=== PATIENT | male | born 1945 | race Hispanic/Latino ===

== ENCOUNTER 2017-04-04 17:10 | Inpatient (IN) | payer OTHER ==
[2017-04-04 19:01] LABS: #Eosinphils 0.3 thou/uL (0.0-0.7); #Lymphocytes 1.5 thou/uL (1.20-3.40); #Monocytes 0.8 thou/uL (0.11-0.59); #Neutrophils 5.7 thou/uL (1.40-6.50); %Basophils 0.4 % (0.0-1.0); %Eosinophils 3.1 % (0.0-10.0); %Lymphocytes 17.7 % (21.0-51.0); %Monocytes 9.4 % (0.0-10.0); Hematocrit 37.3 % (42.0-52.0); Mean Platelet Volume 8.3 fL (7.4-10.4); Red Blood Cell (RBC) Count 4.17 mill/uL (4.70-6.10); White Blood Cell (WBC) Count 8.2 thou/uL (4.8-10.8)
[2017-04-04 19:20] LABS: ALT (SGPT) 8 U/L (8-55); AST (SGOT) 9 U/L (5-34); Alkaline Phosphatase 85 U/L (40-150); Anion Gap 18 mmol/L (10-20); BUN (Urea Nitrogen) 54 mg/dL (8.4-25.7); Bilirubin, Total 0.7 mg/dL (0.2-1.2); Calc. Creatinine Clearance 0 mL/min (70-130); Calcium 10.1 mg/dL (7.8-10.44); Carbon Dioxide 29 mmol/L (23-31); Chloride 100 mmol/L (98-107); Estimated GFR-MDRD 5; Globulin 3.8 g/dL (2.4-3.5); Protein, Total 7.6 g/dL (5.8-8.1)
[2017-04-04] MEDS ORDERED: Metoprolol Tartrate 25 MG TAB ONE (20:40)
[2017-04-05] MEDS: Metoprolol Tartrate 25 MG TAB PO SCH ×2 (07:37→20:32)
[2017-04-05] MEDS: Sevelamer Carbonate 800 MG TAB PO SCH (08:30)
[2017-04-05] MEDS: Clopidogrel Bisulfate 75 MG TAB PO SCH (08:30)
[2017-04-05] MEDS: Fish Oil 1,000 MG CAP PO SCH (08:31)
[2017-04-05] MEDS ORDERED: Ondansetron HCl/PF 4 MG/2 ML Vial IVP PRN (09:05)
[2017-04-05] MEDS ORDERED: Ondansetron ODT 8 MG TAB SL PRN (09:05)
[2017-04-05] MEDS ORDERED: Heparin 1,000 UNITS/ML VIAL FS SCH (11:00)
[2017-04-05] MEDS ORDERED: Lidocaine 2% w/Epinephrine 1:200K 20 ML VIAL FS SCH (11:00)
[2017-04-05] MEDS ORDERED: Heparin 10,000 UNITS/ 10 ML VIAL FS SCH (12:00)
--- NOTE | 2017-04-05 13:26 | OP ---
PREOPERATIVE DIAGNOSES: Acute on chronic renal insufficiency, clotted arteriovenous loop, arterioven ous graft. POSTOPERATIVE DIAGNOSES: Acute on chronic renal insufficiency, clotted arteriovenous loop, arteriove nous graft. PROCEDURE: Left femoral temporary dialysis catheter. SURGEON: Wilbert Rhodes M.D. ANESTHESIA: Local. ESTIMATED BLOOD LOSS: Minimal. COMPLICATIONS: None. TECHNIQUE: The right groin was shaved, prepped and draped in a sterile fashion. Local anesthetic in filtrated over the left femoral vein. Femoral vein is cannulated using a 22-gauge finder needle foll owed by a Seldinger needle and a wire was passed under no tension. A small zac was made at the wire entrance site. The wire is used as a guide to dilate the femoral vein. The dialysis catheter was t hreaded to its fullest extent. The wire is withdrawn. All ports flushed and alise blood without diff iculty. Each was flushed with a saline solution. The two dialysis ports are left with 1.8 mL of 100 0 units of heparin per mL solution. Sterile dressings are placed. The enclosed suture was used to s uture the dialysis catheter to the skin. The patient was en route to recovery in stable condition. All instrument counts, needle counts, and lap counts were correct.
--- NOTE | 2017-04-05 14:15 | CON ---
DATE OF CONSULTATION: 04/05/2017 HISTORY: Mr. Jorge is a 71-year-old male who was admitted for a clotted AV fistula/graft access. He could not be declotted as an outpatient due to insurance issues. For this reason, solomon rasmussen was admitted to have his AV graft/fistula declotted. Unfortunately, no interventional radiologist is available this weekend. We will be consulting the surgeon, Dr. Rhodes for temporary femoral charlie lysis catheter, so we can dialyze him. This patient has not had dialysis since Friday. The plan is to wait for Friday for the interventional radiologist to come, so they can do an AV fistulogram. For the moment, we will dialyze this patient once we have the access available. REVIEW OF SYSTEMS: Positive for mild shortness of breath. No nausea, no vomiting, no diarrhea, no c onstipation, no syncopal episode, no abdominal pain. Appetite and energy level is fair. No headache , no diplopia, no sore throat, no diarrhea, no fever or chills, no abdominal pain, no gross hematuria , no dysuria, no frequency. MEDICATIONS: Clopidogrel 75 mg once a day, diltiazem CD 180 mg once a day, fish oil 1000 mg daily, m etoprolol tartrate 25 mg p.o. b.i.d., p.r.n. Zofran, Protonix 40 mg daily, Renvela 800 mg daily, and simvastatin 10 mg tab at bedtime. PAST MEDICAL HISTORY: 1. Hypertension. 2. History of noncompliance. 3. Hyperlipidemia, ESRD from presumed chronic AFIB. 4. Nonischemic cardiomyopathy status post mesenteric ischemia. 5. Peripheral vascular disease. PAST SURGICAL HISTORY: 1. Status post pacemaker placement. 2. Status post cardiac ablation therapy. 3. Status post exploratory lap for lysis of adhesions. 4. Status post incisional hernia repair with mesh. 5. Status post right fem pop. 6. Status post cuffed dialysis catheter placement. 7. Status post AV fistula placement. 8. Status post appendectomy. ALLERGIES: None. TRAUMA: None. IMMUNIZATIONS: Up to date. HOSPITALIZATIONS: Please see past medical history. SOCIAL HISTORY: The patient is and lives in [place], several children. Currently not w orking. No history of smoking, no alcohol intake, no IV drug abuse. Status post blood transfusion. FAMILY HISTORY: No family history of ESRD. PHYSICAL EXAMINATION: VITAL SIGNS: Blood pressure is 160/79, heart rate 79, respiratory rate 20, temperature 98.6, pulse o x 98%. GENERAL: Noted to be awake, alert, comfortable, not in distress. SKIN: Adequate turgor. HEENT: Pinkish conjunctivae, anicteric sclerae. NECK: No neck mass, no carotid bruits, no JVD. CHEST: No deformities. LUNGS: Clear breath sounds, no wheezing, no crackles. HEART: Normal sinus rhythm. No murmur, no gallops, no rubs. ABDOMEN: Globular, soft, nontender, no masses. EXTREMITIES: No edema. AV graft/fistula is nonfunctional. NEUROLOGIC: Awake and oriented to 3 spheres. Moving all extremities. No tremors. LABORATORY DATA: Laboratories of 04/04/2017; white count 8.2, hemoglobin 11.8, sodium 143, potassium 4.1, chloride 100, carbon dioxide 29, BUN 54, creatinine 11.09, glucose 113, calcium 10.1, and album in 3.8. ASSESSMENT AND PLAN: 1. End-stage renal disease - nonfunctional dialysis access. Unable to open the access this weekend. We will be consulting Surgery for temporary femoral dialysis catheter and then we will initiate charlie lysis. My plan is to do a 4-hour hemodialysis with fluid removal as tolerated by the patient. 2. Hypertension. Continue current blood pressure medications. Case discussed at length with samantha boogie's daughter and with the patient by a production coordinator. Agree with current management.
--- NOTE | 2017-04-05 14:36 | HP ---
DATE OF ADMISSION: 04/04/2017 CHIEF COMPLAINT: Hemodialysis access catheter failure. HISTORY OF PRESENT ILLNESS: This is a 71-year-old Indonesian speaking male of Dr. Justin Doe who has type 2 diabetes, associated end-stage renal failure. Also sees Dr. Alicea. He has been on hemodialysis for about 6 years. Three weeks ago, he had an outpatient declotting procedure perfor med on his right arm access and his dialysis schedule is Friday, Friday and Friday. He had his [facility] dialysis on Friday; 2 days later on Friday, they could not get access which is why he was sent to the hospital, yesterday was Friday. He is being admitted for access for his dialysis. Dr. Alicea rubalcava s seen him and wanted to not wait until Friday to get his next dialysis, so the plan is to be held in the hospital, he gets temporary access and then to convert it over to more permanent version. PAST MEDICAL HISTORY: Positive for type 2 diabetes with diabetes associated end-stage renal disease, has history of hemodialysis Friday, Friday, Friday, sees Dr. Alicea. PAST SURGICAL HISTORY: Appendectomy in 2006 and abscess I&D in 2007, incisional herniorrhaphies in and 2009 and his hemodialysis fistula was placed in 02/[address] Dailey, he had a cardiac freedom terization done and had a right lower extremity angioplasty done in 2013. ALLERGIES: He has no known drug allergies. CURRENT MEDICATIONS: He takes Plavix 75 mg a day, metoprolol 100 mg twice a day, Cartia XT 240 once a day, Renvela 800 mg 2 tabs with each meal, Prilosec 20 mg a day and Zocor 10 mg a day, also takes T ums. FAMILY HISTORY: Positive for diabetes in both parents, had an unknown type of cancer in his maternal grandmother. No other chronic diseases in the family. SOCIAL HISTORY: He is , has children and no longer working. He smokes 1 pack a day and has f or over 54 years. REVIEW OF SYSTEMS: Denies any headache or changes in vision, no fevers or chills. Denies any chest pain, shortness of breath, hemoptysis or hematemesis. Denies any GI or symptoms. No changes to G I and habits. Denies any seizures, paresis or paresthesias. No hallucinations, auditory or visua l. Denies any suicidal or homicidal ideations. PHYSICAL EXAMINATION: GENERAL: He is resting comfortably in bed. His is in the room with him and the daughter was on the phone. VITAL SIGNS: Temperature 98.6, pulse 79, respirations 20, satting 98% on room air with 160/79 blood pressure. HEENT: Normocephalic, atraumatic cranium with pupils are equal, round, reactive to light and accommo dation. Extraocular movements are intact. Sclerae is anicteric. Mucous membranes are moist. NECK: Supple, no JVD, no bruits, no thyromegaly. LUNGS: Clear to auscultation bilaterally. HEART: S1, S2, with no rubs, murmurs, or gallops. ABDOMEN: Soft, nontender, nondistended. He is obese. GENITOURINARY: Deferred. EXTREMITIES: Show good palpable pulses in all four extremities. No cyanosis, clubbing or edema. Ry ancelmo upper extremity calf site for hemodialysis. Has no thrill on palpation. NEUROLOGIC: Grossly intact. Cranial nerves II-XII are equal and symmetrical. No motor or sensory d eficits noted. LABORATORY DATA: White count is 8.2, H&H is 11.8 and 37.3 respectively with 120,000 platelets. Neut rophils are 69% and lymphocytes of 17. Chemistries show sodium 143, potassium 4.1, chloride 100, bic arbonate 29, BUN is 54, creatinine is 11.09 with a GFR of 5, glucose at 116. ASSESSMENT: Type 2 diabetes with end-stage renal failure, on hemodialysis, with a failed hemodialysi s access catheterization, planning getting a temporary catheter today and then will convert to that o n Friday when Dr. Dailey, Dr. Olvera, Dr. Rhodes has seen him as well as Dr. Alicea.
[2017-04-05] MEDS: Simvastatin 5 MG TAB PO SCH (20:32)
[2017-04-06] MEDS: Fish Oil 1,000 MG CAP PO SCH (09:12)
[2017-04-06] MEDS: Metoprolol Tartrate 25 MG TAB PO SCH ×2 (09:12→20:47)
[2017-04-06] MEDS: Clopidogrel Bisulfate 75 MG TAB PO SCH (09:13)
--- NOTE | 2017-04-06 09:45 | PRG ---
DATE OF SERVICE: 04/06/2017 RENAL MEDICINE SUBJECTIVE: Mr. Jorge was admitted due to a clotted AV graft/fistula. He had a temporary femoral dialysis catheter placed. He underwent hemodialysis yesterday without any difficulty. This morning , he voices no new complaints. Denies any chest pain or shortness of breath. PHYSICAL EXAMINATION: VITAL SIGNS: Blood pressure 142/75, heart rate 80, respiratory rate 16, temperature 98.8, and pulse ox 98%. GENERAL: Noted to be awake, supine, comfortable, not in distress. SKIN: Adequate turgor. HEENT: He has pinkish conjunctivae, anicteric sclerae. NECK: No neck mass, no carotid bruits. No JVD. CHEST: No deformities. LUNGS: Clear breath sounds. No wheezing, no crackles. HEART: Normal sinus rhythm. No murmur, no gallops, no rubs. ABDOMEN: Globular, soft, nontender, no masses. EXTREMITIES: No edema, no deformities. MEDICATIONS: Medications of 04/06/2017 reviewed. LABORATORY DATA: Laboratories of 04/06/2017 not done. On 04/04/2017, hemoglobin 11.8 and potassium is 4.1. ASSESSMENT AND PLAN: 1. Clotted arteriovenous fistula/graft - arteriovenous fistulogram in a.m. with Interventional Radio logy. Currently, the patient has a temporary femoral dialysis catheter. 2. End-stage renal disease, stable. We will continue current Friday, Friday, and Friday hemodial ysis with this patient as tolerated. He did receive dialysis yesterday. We will recheck basic metab olic panel and CBC in a.m. Overall, agree with current management.
[2017-04-06] MEDS: Sevelamer Carbonate 800 MG TAB PO SCH (10:03)
[2017-04-06] MEDS ORDERED: HumaLOG 300 UNITS/3 ML VIAL SC PRN ×2 (13:29)
[2017-04-06] MEDS ORDERED: Heparin 10,000 UNITS/1 ML VIAL ONE (17:36)
[2017-04-06] MEDS: Simvastatin 5 MG TAB PO SCH (20:47)
[2017-04-07 05:28] LABS: #Eosinphils 0.1 thou/uL (0.0-0.7); #Lymphocytes 1.2 thou/uL (1.20-3.40); #Monocytes 0.7 thou/uL (0.11-0.59); #Neutrophils 4.4 thou/uL (1.40-6.50); %Basophils 0.2 % (0.0-1.0); %Eosinophils 2.1 % (0.0-10.0); %Lymphocytes 18.7 % (21.0-51.0); Hematocrit 35.5 % (42.0-52.0); Mean Platelet Volume 8.5 fL (7.4-10.4); Red Blood Cell (RBC) Count 3.99 mill/uL (4.70-6.10); White Blood Cell (WBC) Count 6.5 thou/uL (4.8-10.8)
[2017-04-07 05:41] LABS: Anion Gap 18 mmol/L (10-20); BUN (Urea Nitrogen) 44 mg/dL (8.4-25.7); Calc. Creatinine Clearance 9 mL/min (70-130); Calcium 8.1 mg/dL (7.8-10.44); Carbon Dioxide 24 mmol/L (23-31); Chloride 100 mmol/L (98-107); Estimated GFR-MDRD 6
--- NOTE | 2017-04-07 08:18 | PRG ---
DATE OF SERVICE: 04/07/2017 SUBJECTIVE: This is a 71-year-old Latin-Jordanian male with clotted arteriovenous fistula. The patie nt was admitted for continuation of dialysis and surgical evaluation of his arteriovenous access. A temporary femoral catheter was placed. OBJECTIVE: VITAL SIGNS: Temperature 98.1, pulse 77, respirations 20, pulse ox 96, blood pressure 147/84. HEART: Regular rate and rhythm. LUNGS: Clear. ABDOMEN: Soft, nontender. LABORATORY DATA: White count 6.5, H and H 11 and 35. Sodium 138, potassium 4.2, creatinine 9.2, BUN 44. ASSESSMENT: 1. Clotted arteriovenous fistula/graft. 2. End-stage renal disease secondary to diabetes. 3. Hypertension. 4. Hyperlipidemia. 5. Diabetes. PLAN: 1. Dr. Dailey to evaluate today for AV access for hemodialysis. 2. AV fistulogram is scheduled for this morning by Interventional Radiology. 3. The patient remains asymptomatic without any complaints of chest pain, shortness of breath, nause a, or vomiting.
[2017-04-07] MEDS ORDERED: Activase 2 MG VIAL CATH SCH (08:30)
[2017-04-07] MEDS ORDERED: Heparin 10,000 UNITS/ 10 ML VIAL ONE (09:00)
--- NOTE | 2017-04-07 09:19 | PRG ---
DATE OF SERVICE: 04/07/2017 RENAL MEDICINE SUBJECTIVE: Luisito is a 71-year-old male who was admitted due to a clotted AV graft/AV fi stula. A temporary femoral dialysis catheter has been inserted by Dr. Rhodes. He is due for AV fis tulogram today. He is currently at the bedside supervising his dialysis. He voices no new complaint s. He denies any chest pain or shortness of breath. PHYSICAL EXAMINATION: VITAL SIGNS: Blood pressure is 147/84, heart rate 77, respiratory rate 20, temperature 98.1, pulse o x 96%. GENERAL: Noted to be awake, supine, comfortable, not in distress. SKIN: Adequate turgor. HEENT: He has pinkish conjunctivae, anicteric sclerae. NECK: No neck mass, no carotid bruits, no JVD. CHEST: No deformities. LUNGS: Clear breath sounds. No wheezing, no crackles. HEART: Normal sinus rhythm. No murmur, no gallops, no rubs. ABDOMEN: Globular, soft, nontender, no masses. EXTREMITIES: No edema. MEDICATIONS: Of 04/07/2017 reviewed. LABORATORY DATA: Of 04/07/2017, sodium 138, potassium 4.2, chloride 100, carbon dioxide 24, BUN 44, creatinine 9.22, glucose 107, calcium 8.1. White count 6.5, hemoglobin 11.4. ASSESSMENT AND PLAN: 1. End-stage renal disease, stable. Tolerating current hemodialysis regimen. We will plan to do a 4-hour dialysis with fluid removal as tolerated. 2. Clotted arteriovenous graft/fistula - for arteriovenous fistulogram. He has a temporary dialysis catheter. Overall, agree with current management.
[2017-04-07] MEDS: Metoprolol Tartrate 25 MG TAB PO SCH ×2 (13:04→20:39)
[2017-04-07] MEDS: Clopidogrel Bisulfate 75 MG TAB PO SCH (13:04)
[2017-04-07] MEDS: Fish Oil 1,000 MG CAP PO SCH (13:10)
[2017-04-07] MEDS: Sevelamer Carbonate 800 MG TAB PO SCH (13:10)
--- NOTE | 2017-04-07 18:48 | HP ---
HISTORY OF PRESENT ILLNESS: Terence Jorge is a 71-year-old male patient who was previously dialyz ed at [facility] until insurance demanded he be changed to [facility], [address] [place] [address], and is followed by Dr. Sundeep Alicea and I have been following Mr. Luisito espinoza r some time. He has a right arm fistula that I placed on 03/2011, perforating branch of antecubital vein, inflow proximal radial artery, outflow basilic and cephalic veins, 4 mm coronary dilator interr ogation. He had multiple dialysis catheters placed. The patient has a pacemaker in left subclavian vein. Dr. Nichols performed 06/2011 above the knee right fem-pop bypass graft with [place] 8 mm zeke t. The patient has had problems with dialysis access. I saw him in 2015 for an edematous right arm and he had undergone a fistulogram with Dr. Zavala on several occasions with angioplasty of his n ative vein fistula, axillary area and subclavian vein. Considering the progressive nature of this an d is edematous right arm, it was felt that he would have a failing fistula right arm and the decision was made to evaluate his left arm with a contrast venogram to evaluate the central circulation consi dering he had a left subclavian vein pacemaker. This contrast venogram revealed mild stenosis near t he pacemaker lead, but there was no occlusion. Patient did not follow up with me after that study. Plans were to consider placement of a left arm fistula considering his right arm fistula is failing. Two weeks ago, his fistula thrombosed or was having problems and he was referred by [facility] [place] to [place] to Dr. Natanael Freeman. Patient's family stated that they wanted him to sta y here, but the dialysis center insisted that he be transferred to [place]. Patient had a procedure t here performed, they are uncertain as to the nature and I have called Dr. Natanael Freeman in [place] an d am awaiting his call. Patient was dialyzed last Friday, 5 days ago, and his fistula seemed to b e working well approximately for 2 weeks post-intervention by Dr. Natanael Freeman in [place]. When he reported a Friday four days ago, his fistula had thrombosed. He was scheduled for fistulogram today, but considering the recurrent nature of this and the central circulation problems, we have canceled that. I am still waiting the call from Dr. Freeman. Patient's right arm edema has resolved after his fistula thrombosed. Patient has had multiple abdominal operations for complicated hernia. Laparosc opic repair complicated by leak and resultant multiple open operations, component separations, to gai n closure and he is probably not a good candidate for peritoneal dialysis. He does ambulate with the ability of a cane. He does have palpable pedal pulses with chronic venous stasis changes and he sandoval ht be a candidate for a thigh graft in the future. Consideration at this point would be to establish a left arm fistula. On admission in the emergency room, patient had a left antecubital IV placed, present since until I s aw him today and removed it at the bedside. The patient had a repeat Marking ultrasound 01/11/2016 t o consider a left arm fistula, the left cephalic vein was 0.8 mm, 0.6 mm, 0.7 mm and 0.8 mm antecubit al fossa, 0.6 mm in proximal forearm. Left basilic vein was 3.9 mm, 3 mm, 4 mm and 1.9 mm antecubita l fossa and 2 mm in proximal forearm. Patient is likely to need a prosthetic graft, although explora tion could be undertaken to check availability of hamilton vein fistula. The patient has had a tempora ry left femoral vein dialysis catheter placed and is using that for dialysis. He dialyzed this morni ng. This is the first time he dialyzes since Friday last week. (Today is Friday). ALLERGIES: None. TOBACCO: None. ALCOHOL: None. HOME MEDICATIONS: Plavix 75 mg a day, Renvela 800 mg a day, omega 3 fatty acids daily, Prilosec 20 m g daily, metoprolol 25 mg b.i.d., Zocor 10 mg at bedtime. PAST SURGICAL HISTORY: Extensive. On 07/2006, electrical cardioversion for atrial flutter, Dr. Brady Betancourt. On 11/2006, acute appendicitis with abscess with diminished cardiac ejection fraction of 20%. Right lower quadrant incision at [facility]'s point to a midline exploratory laparotomy, append ectomy, drainage of abscess. 06/2007, laparoscopic adhesiolysis, laparoscopic polyester auto-suture 8 x 10-inch mesh repair of incisional hernia. The patient postoperatively suffered a leak and had be en cared for at another facility. He had an operation there for washout and closure of midline defec t. On 02/10/2008, recurrent incisional hernia, laparoscopic adhesiolysis, performed the hernia repai r, performed adhesiolysis for more than 1 hour, laparoscopic Proceed mesh, repair of incisional herni a with 20 x 25 cm Proceed mesh. 09/01/2009, incisional hernia repair complex with preperitoneal Proc eed mesh 20 x 25 cm utilizing component separation technique, lysis of adhesions for more than an estefani r, complicated wound left open to healing by secondary intention debridement and wound VAC applicatio n. On 09/29/2010, placement of right IJ cuffed tunnel dialysis catheter. On 02/13/2011, right arm p rimary fistula, perforating branch antecubital vein to proximal radial artery outflow basilic and cep halic vein. On 06/18/2011, right fem-pop bypass graft, Dr. Lawrence Nichols above the knee, PTFE. 08/04, bedside debridement of necrotic Achilles tendon due to a pressure sore. On 08/08/2011, left I J dual-lumen Thomson catheter for long-term IV antibiotic administration. 04/11/2014, Dr. Betancourt, cent ral line placement. On 04/11/2014, right femoral vein temporary dialysis catheter, after cardiac arr est pacemaker dependent respiratory failure, ventilator, thrombosed right arm fistula and need of liss rgent dialysis access. On 07/06/2015, Dr. Lees, cystoscopy for ureteral stone and fever. On 06/2016, Dr. Rhodes, left femoral vein temporary dialysis catheter. PAST MEDICAL HISTORY: 1. End-stage renal disease, on maintenance dialysis using right arm fistula, malfunction of right ar m dialysis fistula. 2. Type 2 diabetes mellitus. 3. Ambulatory with assistance of a walker or cane due to weakness. REVIEW OF SYSTEMS: Noncontributory. PHYSICAL EXAMINATION: VITAL SIGNS: Five foot, 484 pounds, 36 BMI, 99 degrees, 82, 18, 133/70. HEENT: Unremarkable. LUNGS: Clear to auscultation. CARDIAC: Regular rate and rhythm without murmur or gallop. ABDOMEN: Soft, nontender. Scars per above surgical history. EXTREMITIES: Palpable femoral, popliteal, posterior tibial and dorsalis pedis pulses. No ankle purvi a. Right arm dialysis fistula thrombosed, right arm edema resolved, left subclavian vein pacemaker. ASSESSMENT AND PLAN: 1. 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 George giraldo has had intervention three weeks ago in [place], referred by [facility] against family w joni. He had a procedure performed there and his right arm fistula worked for two weeks, then throm bosed again. Fistulogram has been ordered, but I canceled this as I do not think right arm fistula i s salvageable. We would recommend that we place a dialysis catheter tomorrow and then later this wee k, consider left arm fistula, more likely a dialysis graft or staged transposition pending operative findings. He is at risk for having to have a thigh dialysis graft in the future. He has a right sub clavian vein obstruction. 2. Hypertension. 3. Peripheral artery disease. 4. History right femoral-popliteal above knee bypass graft by Dr. Nichols. ADDENDUM: Since the dictation earlier today, I have spoken with Dr. Natanael Freeman who performed on 03/06/2017, procedure/graft from the left internal jugular vein to the right deltopectoral area in order to try to salvage the patient's right arm fistula. The patient arm edema resolved after this and his fistul a worked until it thrombosed last week. Considering this information, we will plan attempt at idaag e of his fistula tomorrow with thrombectomy of his right arm fistula, possible placement of thigh charlie lysis catheter.
--- NOTE | 2017-04-07 19:10 | PRG ---
DATE OF SERVICE: 04/07/2017 Mr. Jorge has a right arm fistula with occluded right subclavian vein. He went to [place] on 03/[address] Natanael Freeman performed HeRO procedure converting his right arm cephalic vein fistula outflow to a PTFE graft anastomosed to the deltopectoral groove right arm outflow to the left interna l jugular vein (right internal jugular vein outflow occluded). This functioned for dialysis for two and a half weeks. At this point, this access is very difficult. I have spoke to Dr. Natanael Freeman. I spoke to the patient, but there is some language barrier and I would like to discuss this again w ith the family in the morning. I would recommend that he undergo a fistulogram and attempted thrombo lysis. His clot burden may be too great and he may need surgery to assess. If radiology can open hi s arterial inflow and venous outflow, operative intervention may not be necessary, but would plan to have that resource available after Interventional Radiology in case is needed. The patient has PAD w ith a history of right femoral popliteal artery bypass, PTFE graft above the knee. He does have palp able pulses left. His abdomen is hostile with multiple prior operations and probably not amenable pe ritoneal dialysis. Left arm possibly could have a dialysis fistula, although veins are suboptimal an d left subclavian vein was stenotic two years ago. We will await outcome with tomorrow's interventio nal, possible surgery or procedure.
[2017-04-07] MEDS: Simvastatin 5 MG TAB PO SCH (20:39)
[2017-04-08 05:57] LABS: Anion Gap 17 mmol/L (10-20); BUN (Urea Nitrogen) 32 mg/dL (8.4-25.7); Calc. Creatinine Clearance 12 mL/min (70-130); Carbon Dioxide 24 mmol/L (23-31); Chloride 99 mmol/L (98-107); Estimated GFR-MDRD 8
[2017-04-08] MEDS ORDERED: Heparin 1,000 UNITS/ML VIAL ONE (07:38)
[2017-04-08] MEDS ORDERED: Sterile Water 10 ML VIAL IVP SCH (07:45)
[2017-04-08] MEDS ORDERED: Activase 2 MG VIAL CATH SCH (07:45)
[2017-04-08] MEDS: Metoprolol Tartrate 25 MG TAB PO SCH ×2 (08:00→21:18)
--- NOTE | 2017-04-08 08:56 | PRG ---
DATE OF SERVICE: 04/08/2017 SUBJECTIVE: The patient is doing well this morning, talked with the daughter. The patient is being prepared to undergo a procedure by Dr. Dailey. Attempt will be made with his present fistula to [facility] use Activase to open up the clot versus angioplasty versus stent placement versus thrombectomy. OBJECTIVE: VITAL SIGNS: Temperature 99.3, pulse 80, respirations 17, pulse ox 94, blood pressure 118/72. Exam unchanged. LABORATORY DATA: Electrolytes: Sodium 136, potassium 3.8, creatinine 6.8, BUN 32, blood sugar 109, 110, 107. ASSESSMENT: 1. Clotted AV fistula/graft. 2. End-stage renal disease secondary to diabetes. 3. Hypertension. 4. Hyperlipidemia. 5. Diabetes. PLAN: 1. Dr. Dailey to attempt opening of the patient's fistula. 2. Continue dialysis. 3. The patient remains complicated with his multiple fistula placements as well as his multiple abdo rommel surgeries, possibly precluding him from peritoneal dialysis.
[2017-04-08] MEDS: Sevelamer Carbonate 800 MG TAB PO SCH (09:33)
[2017-04-08] MEDS: Fish Oil 1,000 MG CAP PO SCH (09:33)
[2017-04-08] MEDS: Clopidogrel Bisulfate 75 MG TAB PO SCH (09:34)
--- NOTE | 2017-04-08 09:39 | SPC ---
RIGHT UPPER EXTREMITY FISTULOGRAM: Date: 04-08-17 Radiation dosimetry: 4.6 minutes fluoroscopy; DAP 13.5 mGy*cm^2. Technique: Informed consent was obtained from the patient. The right upper extremity fistula was accessed using a short 6 Irish sheath. Fistulogram was performed. The entire right upper extremity dialysis fistula is clotted. There is extensive intraluminal heterogeneity and thickening and fibrotic changes. Attem pts were made to gain access into the right upper extremity draining vein. HeRO type catheter. Attemp ts were unsuccessful in access to this. IMPRESSION: Clotted right upper extremity dialysis fistula. Attempts to gain access into the venous catheter were unsuccessful. POS: ILANA
[2017-04-08] MEDS ORDERED: CEFAZOLIN/Water 2 GM/20 ML SYRINGE SLOW IVP SCH ×2 (13:45→18:00)
[2017-04-08] MEDS ORDERED: Iopamidol 300 61% 100 ML VIAL FS ONE (14:11)
--- NOTE | 2017-04-08 20:55 | PRG ---
DATE OF SERVICE: 04/08/2017 SUBJECTIVE: Terence Jorge underwent attempted interventional radiology today to declot his right arm cephalic vein fistula that he has had since 03/2011. The patient has previously noted to have de veloped right subclavian vein obstruction. The patient has been maintained by collaterals, although he had right arm edema until presenting, referred to [facility], seen Dr. Natanael Freeman, undergoing a He RO procedure. This involved prosthetic graft from the cephalic vein, deltopectoral groove right acro ss his chest to reach a patent left internal jugular vein with the prosthetic graft extending down th e internal jugular vein and superior vena cava. This was patent for 2 weeks and then thrombosed. Ra diology attempted to declot this today, but was unsuccessful. I do not think efforts to salvages are warranted. If the family wants to take the patient to Dr. Calvo or to see Dr. Natanael Freeman, he c an work with this in an attempt to do so. Currently, the patient has a right femoral vein temporary dialysis catheter. The patient has a mild narrowing of his left subclavian vein appreciated in 2016 contrast venogram. This is due to a pacemaker left. Now that the patient has left subclavian vein p acemaker and in addition the prosthetic graft from the internal jugular vein left to the innominate v ein to the superior vena cava. I do not think it is worthwhile to attempt dialysis access in his lef t arm as he would likely develop edema of his left arm. The patient has had a prior [id number] p rosthetic femoral to popliteal artery bypass graft, right leg, performed by Dr. Nichols in the past. He does have palpable pulses on the left femoral, popliteal, dorsalis pedis pulse. My recommendation at this time would be to place a cuffed tunneled dialysis catheter in right groin. This will allow him dialysis access, he can be discharged home. Then would return to the operating room as an outpat ient in the future to place a left thigh dialysis graft. 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
[2017-04-08] MEDS: Simvastatin 5 MG TAB PO SCH (21:17)
[2017-04-09] MEDS ORDERED: Heparin 10,000 UNITS/ 10 ML VIAL ONE (07:18)
--- NOTE | 2017-04-09 08:47 | PRG ---
DATE OF SERVICE: 04/09/2017 SUBJECTIVE: No complaints by patient. He is doing well. Yesterday the attempt at opening up the AV fistula was unsuccessful. Further plan pending. OBJECTIVE: VITAL SIGNS: Temperature 97.5, pulse 87, respirations 18, pulse ox 100, blood pressure 132/72. HEART: Regular rate and rhythm. LUNGS: Clear. ABDOMEN: Soft. LABORATORY: None. Last blood sugar 152, 141, 115. ASSESSMENT: 1. Postop day #1, status post unsuccessful declotting of thrombosed fistula. 2. End-stage renal disease secondary to diabetes. 3. Hypertension. 4. Hyperlipidemia. 5. Diabetes. PLAN: 1. Dr. Dailey to consider next step. Possibly placing a tunnel catheter of left groin area. 2. Continue dialysis. 3. Discharge per Dr. Dailey and Dr. Alicea.
--- NOTE | 2017-04-09 09:00 | PRG ---
DATE OF SERVICE: 04/09/2017 SUBJECTIVE: Mr. Jorge is a 71-year-old male with ESRD and was admitted for a clotted rig ht upper extremity AV fistula. Attempt to declot it was not successful. He had also announce that t he procedure done by Dr. Freeman in [place] undergone a HeRO procedure. However, this did not maintain the patency of the said graft. He is now being evaluated by Dr. Dailey. Per recommendation by Dr. Dailey is to place a cuffed dialysis catheter on the groin and then eventually consider an AV graft/ fistula on the left groin. He is undergoing dialysis. I am at the bedside supervising his dialysis. He is tolerating the said treatment. OBJECTIVE: VITAL SIGNS: Blood pressure is 132/72, heart rate 87, respiratory rate 18, temperature 97.5, pulse o x 100%. GENERAL: Noted to be awake, alert, supine, comfortable, not in distress. SKIN: Adequate turgor. HEENT: Pinkish conjunctivae, anicteric sclerae. NECK: No neck mass, no carotid bruits, no JVD. CHEST: No deformities. LUNGS: Clear breath sounds. No wheezing, no crackles. HEART: Normal sinus rhythm. No murmur, no gallops or rubs. ABDOMEN: Globular, soft, nontender. No masses. EXTREMITIES: No edema. MEDICATIONS: Of 04/09/2017 was reviewed. LABORATORY DATA: Of 04/07/2017, white count 6.5, hemoglobin 11.4. On 04/08/2017, BUN 32, creatinine 6.84, potassium 3.8. On 04/09/2017, glucose 115. ASSESSMENT AND PLAN: 1. Clotted AV fistula - for placement of right femoral cuffed dialysis catheter by surgery. Eventua l placement of AV fistula/graft on the groin. 2. End-stage renal disease, stable. Tolerating said treatment. Continue current Friday, Friday, Friday dialysis regimen. Fluid removal only as tolerated. We will do a base met and CBC in a.m. ADDENDUM: Dr. Dailey to place a cuffed dialysis catheter on the groin today.
[2017-04-09 12:02] VITALS: BMI 31.0
[2017-04-09] MEDS: Clopidogrel Bisulfate 75 MG TAB PO SCH (12:18)
[2017-04-09] MEDS: Metoprolol Tartrate 25 MG TAB PO SCH ×2 (12:18→21:05)
[2017-04-09] MEDS: Fish Oil 1,000 MG CAP PO SCH (12:19)
[2017-04-09] MEDS: Sevelamer Carbonate 800 MG TAB PO SCH (12:19)
[2017-04-09] MEDS ORDERED: Protamine Sulfate 50 MG/5 ML VIAL ONE (15:27)
[2017-04-09] MEDS ORDERED: Bupivacaine/Epinephrine 0.25% 30 ML VIAL ONE (15:27)
[2017-04-09] MEDS ORDERED: Heparin 10,000 UNITS/1 ML VIAL ONE (15:27)
[2017-04-09] MEDS ORDERED: Heparin 5,000 UNITS/ML VIAL ONE (15:27)
[2017-04-09] MEDS ORDERED: Sodium Chloride 0.9% 20 ML ONE (15:27)
[2017-04-09] MEDS ORDERED: Ioversol 68 % 50 ML VIAL ONE (15:27)
[2017-04-09] MEDS ORDERED: Lidocaine 2% PF 5 ML VIAL ONE ×2 (15:27→15:28)
[2017-04-09] MEDS ORDERED: Lidocaine 1% PF 5 ML VIAL ONE (15:39)
[2017-04-09] MEDS ORDERED: Propofol 200 MG/20 ML VIAL ONE (15:39)
[2017-04-09] MEDS ORDERED: Midazolam HCl 2 mg/2 ml Vial ONE (15:55)
[2017-04-09] MEDS ORDERED: Fentanyl 100 MCG/2 ML VIAL ONE (15:55)
[2017-04-09] MEDS ORDERED: CEFAZOLIN/Water 2 GM/20 ML SYRINGE ONE (16:25)
[2017-04-09] MEDS ORDERED: Acetaminophen 500 MG TAB PO PRN (18:42)
[2017-04-09] MEDS ORDERED: traMADol HCl 50 MG TAB PO PRN ×2 (18:42)
[2017-04-09] MEDS: Simvastatin 5 MG TAB PO SCH (21:04)
--- NOTE | 2017-04-09 22:42 | OP ---
DATE OF PROCEDURE: 04/09/2017 PREOPERATIVE DIAGNOSIS: End-stage renal disease, occluded right subclavian vein, thrombosed right ar m cephalic vein fistula, and thrombosed HeRO graft deltopectoral groove cephalic vein right to left i nternal jugular vein and into the superior vena cava. Left subclavian vein pacemaker 2016 contrast v enogram demonstrating high-grade stenosis left subclavian vein. History of right femoral to above-th e-knee popliteal artery bypass graft and right iliac artery stent by Dr. Simone DUEÑAS. 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 POSTOPERATIVE DIAGNOSES: End-stage renal disease, occluded right subclavian vein, thrombosed right arm cephalic vein fistula, and thrombosed HeRO graft deltopectoral groove cephalic vein right to lef t internal jugular vein and into the superior vena cava. Left subclavian vein pacemaker with 2016 co ntrast venogram demonstrating high-grade stenosis left subclavian vein. History of right femoral to [id number] popliteal artery bypass graft and right iliac artery stent by Dr. Simone DUEÑAS. 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 PROCEDURE: Right femoral vein cuffed tunnel hemodialysis catheter, angiodynamics. Fluoroscopy used. SURGEON: Angel Dailey M.D. ANESTHESIA: Intravenous sedation and local 0.25% Marcaine with epinephrine 30 mL mixed with 2% Xyloc hung 10 mL . Note, the patient has a Trialysis catheter, left femoral vein, which will be removed th is hospitalization and in the future, he will need a left thigh dialysis graft. PROCEDURE IN DETAIL: The patient was taken to the operating room where under intravenous sedation, r ight groin and thigh prepared with ChloraPrep, draped in routine fashion. Local anesthetic mixture w as infiltrated into the skin and subcutaneous tissue about the operative site. Trocar catheter cannu lated the femoral vein, obtained good return of venous blood, J-wire threaded, trocar catheter remove d. Fluoroscopic images revealed good wire placement without problems, characteristic location of the iliac vein, and inferior vena cava. Stab incision made at the wire entry site and in the planned ex it site in the right anterior lateral thigh. Tunneling device was used to tunnel angiodynamics cuffe d tunnel dialysis catheter between the two incisions, placing the fabric cuff beneath the skin exit s ite in the mid anterior lateral thigh. Catheter secured with 2 interrupted sutures of 3-0 nylon. Bi opatch applied. Small and medium-sized dilators placed over the J-wire into the femoral vein and rem juan alberto. Dilator and pull-away sheath placed over the J-wire into the femoral vein and J-wire and dilat or removed. A catheter placed through a pull-away sheath. The pull-away sheath removed. Fluoroscop ic images revealed good line placement. There was good return of venous blood from the hemodialysis catheter. Each port flushed with saline solution and heparinized saline solution 1000 units heparin per mL indicated volume of the port. The patient tolerated the procedure well. Approximated subcuta neous tissues with 4-0 Monocryl, skin with subdermal 4-0 Monocryl and DermaGlue applied. A sterile d ressing was applied.
[2017-04-10 05:23] LABS: #Eosinphils 0.2 thou/uL (0.0-0.7); #Lymphocytes 1.6 thou/uL (1.20-3.40); #Neutrophils 6.8 thou/uL (1.40-6.50); %Basophils 0.2 % (0.0-1.0); %Lymphocytes 16.1 % (21.0-51.0); %Monocytes 10.8 % (0.0-10.0); Hematocrit 37.1 % (42.0-52.0); Mean Platelet Volume 8.8 fL (7.4-10.4); Red Blood Cell (RBC) Count 4.17 mill/uL (4.70-6.10); White Blood Cell (WBC) Count 9.6 thou/uL (4.8-10.8)
[2017-04-10 05:58] LABS: Anion Gap 16 mmol/L (10-20); BUN (Urea Nitrogen) 30 mg/dL (8.4-25.7); Calc. Creatinine Clearance 11 mL/min (70-130); Calcium 7.8 mg/dL (7.8-10.44); Carbon Dioxide 23 mmol/L (23-31); Chloride 103 mmol/L (98-107); Estimated GFR-MDRD 7
--- NOTE | 2017-04-10 08:42 | PRG ---
DATE OF SERVICE: 04/10/2017 SUBJECTIVE: This is a 71-year-old male doing well postoperative day #1, status post r ight femoral vein cuffed tunneled hemodialysis catheter placement by Dr. Dailey. OBJECTIVE: VITAL SIGNS: Temperature 99.3, pulse 94, respirations 18, pulse ox 99, blood pressure 132/63. CARDIOVASCULAR: Regular rate and rhythm. LUNGS: Clear. ABDOMEN: Soft. EXTREMITIES: No edema. LABORATORY DATA: White count 9.6, H&H 11 and 37. Electrolytes normal, creatinine 7.36, BUN 30, bloo d sugar 148 and 125. ASSESSMENT: 1. Postop day #1, status post right femoral vein tunneled hemodialysis catheter placement. 2. Postop day #2, status post unsuccessful declotting of thrombosed fistula. 3. End-stage renal disease secondary to diabetes. 4. Hypertension. 5. Hyperlipidemia. 6. Diabetes. PLAN: 1. Probable okay for discharge today if okay with Dr. Dailey and Dr. Alicea. 2. Continue with hemodialysis 3 times a week. 3. Eventually Dr. Dailey may place a left groin fistula.
[2017-04-10 09:58] VITALS: BP 121/67; TEMP 96.8
[2017-04-10] MEDS: Metoprolol Tartrate 25 MG TAB PO SCH (09:59)
[2017-04-10] MEDS: Sevelamer Carbonate 800 MG TAB PO SCH (09:59)
[2017-04-10] MEDS: Clopidogrel Bisulfate 75 MG TAB PO SCH (09:59)
[2017-04-10] MEDS: Fish Oil 1,000 MG CAP PO SCH (10:00)
--- NOTE | 2017-04-14 10:13 | DIS ---
DATE OF ADMISSION: 04/04/2017 DATE OF DISCHARGE: 04/10/2017 DISCHARGE DIAGNOSES: 1. Postop day #1 status post right femoral vein tunneled hemodialysis catheter placement. 2. Postop day #2 status post unsuccessful declotting of thrombosed fistula. 3. End-stage renal disease secondary to diabetes. 4. Hypertension. 5. Hyperlipidemia. 6. Diabetes. DISCHARGE MEDICATIONS: Diltiazem 180 p.o. q. day, Plavix 75 mg q. day, fish oil 1000 p.o. q. day, me toprolol 25 p.o. b.i.d., Renvela 800 p.o. daily, and Zocor 10 mg p.o. daily. BRIEF HISTORY: This is a 71-year-old male with a long history of diabetes and end-sta ge renal disease, who has been receiving dialysis regularly. It began approximately 6 years ago. Th ree weeks ago, he had an outpatient declotting procedure on his right arm access; however, this has b een unsuccessful. He was, therefore, referred to the [place] for hospitalization and further eval uation. HOSPITAL COURSE: Dr. Alicea was consulted. The patient received temporary hemodialysis. Dr. Dailey wa s consulted. The patient has had a right arm fistula with an occluded right subclavian vein. He was seen in [place] by Dr. Freeman in a HeRO procedure converting his right arm cephalic vein fistula outf low to a PTFE graft and anastomosed to the deltopectoral groove for right arm outflow to the left int ernal jugular vein. This functioned for about 2-1/2 weeks and then access became difficult and the p atient was admitted for further evaluation. An attempt to declot the fistula was unsuccessful by Rad iology. The patient did undergo a right femoral vein cuffed tunneled hemodialysis catheter placement to continue with hemodialysis, so through this right femoral vein tunneled hemodialysis catheter, he will receive his outpatient dialysis. Further procedures will be done on an outpatient basis.
--- NOTE | 2017-05-06 13:34 | EKG ---
Test Reason : Blood Pressure : / mmHG Vent. Rate : 109 BPM Atrial Rate : 105 BPM P-R Int : 000 ms QRS Dur : 074 ms QT Int : 342 ms P-R-T Axes : 000 028 098 degrees QTc Int : 460 ms Atrial fibrillation with rapid ventricular response Nonspecific T wave abnormality , probably digitalis effect Abnormal ECG Confirmed by LULA SQUIRES ([id number]), editor newspaper RENNY ANDERS ([id number]) on 05/06/2017 1:34:13 PM Referred By: Confirmed By:LULA SQUIRES
== END 2017-04-10 16:00 | disposition short-term general hospital (02) | DRG 314 ==
LOC: EDBD → ERS 17:10 → OBSVTOIN 20:00 → 2SW 20:00 → 2NO 04-06 15:45
PROVIDERS: ADMIT Family Medicine; ATTEND Family Medicine
PROC: 06HN33Z Insertion of Infusion Device into Left Femoral Vein, Percutaneous Approach (ICD-10-PCS; principal; 2017-04-04)
PROC: 5A1D70Z Performance of Urinary Filtration, Intermittent, Less than 6 Hours Per Day (ICD-10-PCS; 2017-04-07)
PROC: B5191ZZ Fluoroscopy of Inferior Vena Cava using Low Osmolar Contrast (ICD-10-PCS; 2017-04-09)
PROC: B51V1ZZ Fluoroscopy of Other Veins using Low Osmolar Contrast (ICD-10-PCS; 2017-04-09)
DX: T82.868A Thrombosis due to vascular prosthetic devices, implants and grafts, initial encounter (principal); N18.6 End stage renal disease; I12.0 Hypertensive chronic kidney disease with stage 5 chronic kidney disease or end stage renal disease; T82.49XA Other complication of vascular dialysis catheter, initial encounter; E11.22 Type 2 diabetes mellitus with diabetic chronic kidney disease; Z99.2 Dependence on renal dialysis; Z95.0 Presence of cardiac pacemaker; Z83.3 Family history of diabetes mellitus; Z84.89 Family history of other specified conditions; Z80.9 Family history of malignant neoplasm, unspecified; Y83.8 Other surgical procedures as the cause of abnormal reaction of the patient, or of later complication, without mention of misadventure at the time of the procedure; Y92.238 Other place in hospital as the place of occurrence of the external cause
CPT/HCPCS: 36415; 36416; 36901; 80048; 80053; 80076; 83036; 85025; 90935; 93005; A4216; C1752; C1769; G0257; J1644; J2001; J2250; J2405; J2704; J2720; J2997; J3010; Q9967

== ENCOUNTER 2017-05-24 03:30 | Inpatient (IN) | payer OTHER ==
[2017-05-24 04:48] LABS: Troponin I 0.051 ng/mL (< 0.028)
[2017-05-24] MEDS ORDERED: Ondansetron HCl/PF 4 MG/2 ML Vial IVP PRN (08:19)
[2017-05-24] MEDS ORDERED: Ondansetron ODT 4 MG TAB SL PRN (08:19)
[2017-05-24] MEDS ORDERED: Acetaminophen 325 MG TAB PO PRN (08:19)
[2017-05-24] MEDS ORDERED: Vancomycin Sliding Scale 1 EACH FS ONE (08:30)
[2017-05-24] MEDS ORDERED: HOLD VANCOMYCIN FOR LEVEL >20 FS SCH (08:30)
[2017-05-24] MEDS ORDERED: Vancomycin HCl 1.25 GM in Sodium Chloride 0.9% 250 ML 250 ML IVPB SCH (08:30)
[2017-05-24] MEDS ORDERED: Vancomycin HCl 1 GM in Premix Bag 1 BAG IVPB SCH ×2 (08:30→16:00)
[2017-05-24] MEDS ORDERED: Vancomycin HCl 750 MG in Sodium Chloride 0.9% 250 ML 250 ML IVPB SCH (08:30)
[2017-05-24] MEDS ORDERED: Sodium Chloride 0.9% 1,000 ML IV SCH (08:30)
[2017-05-24] MEDS ORDERED: Vancomycin HCl 500 MG in Sodium Chloride 0.9% 100 ML IVPB SCH (08:30)
[2017-05-24] MEDS ORDERED: Piperacillin/Tazobactam 2.25 GM in Sodium Chloride 0.9% 100 ML IVPB SCH (09:00)
[2017-05-24] MEDS: Sodium Chloride 0.9% 1,000 ML IV SCH (16:07)
[2017-05-24] MEDS: Acetaminophen 500 MG TAB PO PRN (17:30)
[2017-05-24] MEDS: Calcium Carbonate 500 MG TAB PO SCH (17:30)
[2017-05-24] MEDS: Sevelamer Carbonate 800 MG TAB PO SCH (17:30)
[2017-05-24] MEDS: Simvastatin 20 MG TAB PO SCH (20:42)
[2017-05-24] MEDS: Metoprolol Tartrate 25 MG TAB PO SCH (20:42)
[2017-05-24] MEDS: Piperacillin/Tazobactam 2.25 GM in Sodium Chloride 0.9% 100 ML IVPB SCH (20:43)
--- NOTE | 2017-05-24 21:24 | HP ---
DATE OF ADMISSION: 05/24/2017 CHIEF COMPLAINT: Fever and abdominal pain. HISTORY OF PRESENT ILLNESS: This is a 71-year-old male, who is Indonesian speaking, who came into the [place] ER late last night for a fever of 102 and some upper gastric abdominal chapis n. His workup was essentially negative, his flu was also negative and his chest x-ray was negative. He was sent to [place] for further evaluation and inpatient care. Somewhere along the way to the [facility] room, they thought the patient said he had chest pain, but on further examination with the leonid ent and with his daughter there for interpretation, he denies ever having chest pain; it has all have been epigastric discomfort that started after he had multiple episodes of nausea and vomiting. He h ad vomited about 2-3 times and after he had gotten here and had some IV fluids and had Zofran given t o him that discomfort is diminished. It is still slightly there, but nowhere near as bad as it was p rior to admission. PAST MEDICAL HISTORY: End-stage renal disease, on hemodialysis, he sees Dr. Alicea; he has got coronary artery disease; peripheral vascular disease; hypertension. His past medical history also includes h ypertension, pacemaker implantation, peripheral vascular disease, coronary artery disease, his hemodi alysis is Friday, Friday and Friday. He has a history of presumed chronic atrial fibrillation, al so nonischemic cardiomyopathy and he also has a mesenteric ischemia. PAST SURGICAL HISTORY: Status post pacemaker placement, cardiac ablation. He has had an exploratory laparotomy for lysis of adhesions. He has had an incisional hernia repair with mesh. He has had a right fem-pop bypass. He has had a cuffed dialysis catheter placement. He has had a right arm hemod ialysis catheter, bypass, AV fistula. He has also had an appendectomy. He has also had stents to keith legs. ALLERGIES: He has no known drug allergies. MEDICATIONS: Include Zocor 10 mg, metoprolol 25 mg twice a day, Plavix 75 mg a day, Cartia 240 mg a day, nifedipine 30 mg a day, Nexium 20 mg a day. FAMILY HISTORY: Essentially noncontributory. SOCIAL HISTORY: He is and has several children. Smokes a half a pack a day and has done so for more than 30 years. No alcohol use and no illicit drug use. REVIEW OF SYSTEMS: He denies any headache or visual changes. He has a global malaise, denies any ch ills, but he did have a fever as in HPI of 102. He had the nausea and vomiting, but no hematemesis, no cough, no hemoptysis. Denies any changes in his bowel or bladder habits. Does not make much urin e at all. Denies any neurologic symptoms. No paresis or paresthesias. No seizure activity. Denies any homicidal or suicidal ideations or auditory or visual hallucinations. PHYSICAL EXAMINATION: GENERAL: He is lying in bed, calm, he is rather subdued and just does not feel well. VITAL SIGNS: Temperature 97.9, pulse 85, respiratory rate 20, satting 97% on 2 liters, blood pressur e is 147/73. HEENT: Essentially unremarkable. Pupils are equal, round, and reactive to light and accommodation. Extraocular movements are intact. Sclerae is anicteric. Mucosa is moist. NECK: Supple, no JVD, no bruits, no thyromegaly. LUNGS: Clear to auscultation bilaterally. No rales, rhonchi, or wheezes. HEART: S1, S2. Rhythm is regular, no murmurs. ABDOMEN: Shows minimal tenderness in the mid epigastrium. He had a negative Harrison's on exam with m e, slight mild tenderness in the right upper quadrant, but like I said a negative Harrison's. He has h ad a soft abdomen, nondistended, no guarding. GENITOURINARY: Exam is since unremarkable. He has a dialysis catheter in his right thigh. The AV f istula in his right arm is nonfunctional. NEUROLOGIC: Grossly intact. Cranial nerves II-XII are equal and symmetrical. DTRs are 2+ and equal . Motor and sensory is intact. LABORATORY AND X-RAY FINDINGS: Shows a white count 9.1 with an H&H are 8.9 and 28.3 with platelets o f 189,000, neutrophils are 77%, lymphocytes are 11.7%, and bands at 11%, which is the upper edge, nor mal. Sodium 140, potassium 3.6, chloride is 100, bicarbonate is 25, BUN is 20 and creatinine is 5.6 with a glucose of 130, GFR is 10. Lipase normal at 27, AST and ALT are both 13. As stated in the HP I, the chest x-ray done at [place] was negative. The flu test done in the ER was also negative flu. ASSESSMENT AND PLAN: Fever, abdominal pain, early possible left shift, some meet criteria for sepsis , unsure of the source, also has anemia likely from chronic renal disease. He was started on vancomy marv and Zosyn. We will continue those for now. We will need to get blood cultures and follow that. Dr. Alicea has been consulted.
[2017-05-24] MEDS ORDERED: Zolpidem Tartrate 5 MG TAB PO PRN (22:43)
[2017-05-24] MEDS ORDERED: HYDROcodone/Acetaminophen 7.5/325 mg Tablet PO PRN ×2 (22:44)
[2017-05-24] MEDS: Ondansetron HCl/PF 4 MG/2 ML Vial SLOW IVP PRN (23:52)
[2017-05-25 05:33] LABS: Anion Gap 17 mmol/L (10-20); BUN (Urea Nitrogen) 31 mg/dL (8.4-25.7); Calc. Creatinine Clearance 11 mL/min (70-130); Calcium 8.2 mg/dL (7.8-10.44); Carbon Dioxide 19 mmol/L (23-31); Chloride 105 mmol/L (98-107); Estimated GFR-MDRD 7; Glucose 82 mg/dL (80-115); Potassium 4.2 mmol/L (3.5-5.1); Sodium 137 mmol/L (136-145)
[2017-05-25] MEDS: Piperacillin/Tazobactam 2.25 GM in Sodium Chloride 0.9% 100 ML IVPB SCH ×3 (05:50→21:41)
[2017-05-25 05:58] LABS: #Eosinphils 0.2 thou/uL (0.0-0.7); #Monocytes 0.9 thou/uL (0.11-0.59); #Neutrophils 6.7 thou/uL (1.40-6.50); %Basophils 0.3 % (0.0-1.0); %Eosinophils 2.2 % (0.0-10.0); %Lymphocytes 11.6 % (21.0-51.0); %Monocytes 10.5 % (0.0-10.0); %Neutrophils 75.4 % (42.0-75.0); Hemoglobin 8.6 g/dL (14.0-18.0); Mean Corpuscular HGB CONC 29.9 g/dL (32.0-36.0); Mean Corpuscular Hemoglobin 26.2 pg (27.0-31.0); Mean Corpuscular Volume 87.7 fl (80.0-94.0); Mean Platelet Volume 8.5 fL (7.4-10.4); Platelet Count 186 thou/uL (130-400); RBC Distribution Width 14.1 % (11.5-14.5); Red Blood Cell (RBC) Count 3.28 mill/uL (4.70-6.10); White Blood Cell (WBC) Count 8.9 thou/uL (4.8-10.8)
[2017-05-25] MEDS: Fish Oil 1,000 MG CAP PO SCH (08:24)
[2017-05-25] MEDS: Clopidogrel Bisulfate 75 MG TAB PO SCH (08:24)
[2017-05-25] MEDS: Calcium Carbonate 500 MG TAB PO SCH ×3 (08:24→17:39)
[2017-05-25] MEDS: Metoprolol Tartrate 25 MG TAB PO SCH (08:24)
[2017-05-25] MEDS: Sevelamer Carbonate 800 MG TAB PO SCH ×3 (08:24→17:39)
[2017-05-25] MEDS: Ondansetron HCl/PF 4 MG/2 ML Vial SLOW IVP PRN ×2 (08:42→09:55)
[2017-05-25] MEDS ORDERED: hydrALAZINE 20 MG/ML VIAL SLOW IVP SCH (09:00)
[2017-05-25] MEDS ORDERED: Diltiazem HCl 125 MG, Admixture Fee 1 EACH in Sodium Chloride 0.9% 100 ML IVPB SCH (09:15)
[2017-05-25 09:29] LABS: #Eosinphils 0.2 thou/uL (0.0-0.7); #Lymphocytes 1.4 thou/uL (1.20-3.40); #Monocytes 0.8 thou/uL (0.11-0.59); #Neutrophils 10.2 thou/uL (1.40-6.50); %Basophils 0.1 % (0.0-1.0); %Eosinophils 1.3 % (0.0-10.0); %Lymphocytes 11.5 % (21.0-51.0); %Monocytes 6.4 % (0.0-10.0); %Neutrophils 80.8 % (42.0-75.0); Hemoglobin 9.5 g/dL (14.0-18.0); Mean Corpuscular HGB CONC 29.8 g/dL (32.0-36.0); Mean Corpuscular Hemoglobin 26.2 pg (27.0-31.0); Mean Corpuscular Volume 88.1 fl (80.0-94.0); Mean Platelet Volume 8.1 fL (7.4-10.4); Platelet Count 222 thou/uL (130-400); RBC Distribution Width 14.1 % (11.5-14.5); Red Blood Cell (RBC) Count 3.63 mill/uL (4.70-6.10); White Blood Cell (WBC) Count 12.6 thou/uL (4.8-10.8)
[2017-05-25] MEDS ORDERED: Labetalol HCl 100 MG/20 ML VIAL SLOW IVP SCH (09:30)
[2017-05-25] MEDS ORDERED: Labetalol HCl 200 MG, Admixture Fee 1 EACH in Sodium Chloride 0.9% 250 ML 160 ML IVPB SCH (09:45)
[2017-05-25] MEDS ORDERED: Morphine 10 MG/ML CARPUJECT SLOW IVP SCH (09:50)
[2017-05-25] MEDS ORDERED: Morphine 10 MG/ML CARPUJECT SLOW IVP PRN (09:52)
[2017-05-25] MEDS ORDERED: Morphine 4 MG/ML Carpuject SLOW IVP PRN (09:53)
[2017-05-25 09:54] LABS: ALT (SGPT) 9 U/L (8-55); AST (SGOT) 7 U/L (5-34); Albumin 3.6 g/dL (3.4-4.8); Alkaline Phosphatase 75 U/L (40-150); Anion Gap 17 mmol/L (10-20); BUN (Urea Nitrogen) 34 mg/dL (8.4-25.7); Bilirubin, Total 0.6 mg/dL (0.2-1.2); Calc. Creatinine Clearance 10 mL/min (70-130); Calcium 8.8 mg/dL (7.8-10.44); Carbon Dioxide 21 mmol/L (23-31); Chloride 103 mmol/L (98-107); Estimated GFR-MDRD 7; Globulin 3.8 g/dL (2.4-3.5); Glucose 112 mg/dL (80-115); Magnesium 2.2 mg/dL (1.6-2.6); Phosphorus 2.2 mg/dL (2.3-4.7); Potassium 3.9 mmol/L (3.5-5.1); Protein, Total 7.4 g/dL (5.8-8.1); Sodium 137 mmol/L (136-145)
[2017-05-25 09:58] LABS: Troponin I 0.041 ng/mL (< 0.028)
--- NOTE | 2017-05-25 10:31 | ULT ---
RIGHT LOWER EXTREMITY ARTERIAL DUPLEX SONOGRAM: HISTORY: Absent pulse. FINDINGS: Catheter is seen within the venous structures. Good color and spectral Doppler flow with monophasic waveform is demonstrated within the right common femoral and deep femoral arteries. No flow is seen within the mid to distal portion of the femoral artery. There is trickle of flow within the poplitea l artery and percutaneous transluminal angioplasty. IMPRESSION: Absence of arterial flow within the right femoral and popliteal arteries, age indeterminate. Nonpuls atile flow within the lower leg is suggestive of collateralization. POS: CHELSEA
[2017-05-25] MEDS: Sodium Chloride 0.9% 1,000 ML IV SCH ×2 (10:50→18:15)
[2017-05-25] MEDS ORDERED: Amiodarone In Dextrose 200 ML IVPB SCH (11:00)
[2017-05-25] MEDS ORDERED: Amiodarone HCl 150 MG, Admixture Fee 1 EACH in Dextrose 5% in Water 100 ML IVPB SCH ×3 (11:15)
[2017-05-25] MEDS ORDERED: HOLD VANCOMYCIN FOR LEVEL >20 FS SCH (11:30)
[2017-05-25] MEDS ORDERED: Vancomycin HCl 750 MG in Sodium Chloride 0.9% 250 ML 250 ML IVPB SCH (11:30)
[2017-05-25] MEDS ORDERED: Vancomycin HCl 1 GM in Premix Bag 1 BAG IVPB SCH (11:30)
[2017-05-25] MEDS ORDERED: Vancomycin Sliding Scale 1 EACH FS ONE (11:30)
[2017-05-25] MEDS ORDERED: Vancomycin HCl 500 MG in Sodium Chloride 0.9% 100 ML IVPB SCH (11:30)
[2017-05-25] MEDS ORDERED: Vancomycin HCl 1.25 GM in Sodium Chloride 0.9% 250 ML 250 ML IVPB SCH (11:30)
[2017-05-25] MEDS: Amiodarone HCl 450 MG, Admixture Fee 1 EACH in Dextrose 5% in Water 250 ML IVPB SCH ×6 (11:31→19:20)
[2017-05-25] MEDS ORDERED: Iopamidol 370 76% 50 ML VIAL FS ONE (11:37)
--- NOTE | 2017-05-25 12:21 | CON ---
DATE OF CONSULTATION: 05/25/2017 HISTORY: Mr. Jorge is a 71-year-old male with ESRD and was admitted initially for fever and abdominal pain. We were consulted for his maintenance hemodialysis. This morning, he was compla ining of some nausea and vomiting. In addition, he was complaining of some decreased sensation of th e right lower leg extremity. Please note, he has a dialysis catheter on the right femoral site. REVIEW OF SYSTEMS: Positive for fever, abdominal discomfort, positive for nausea, no syncopal episod e, no diarrhea, no constipation. Decreased sensation of the right lower extremity. No gross hematur ia, no headache, no diplopia, no chest pain, no shortness of breath. MEDICATIONS: Tylenol 1000 mg p.o. q.6 hours, [place] 7.5/325 q.8 hours p.r.n., [place] 500 mg p.o. t.i. d., Plavix 75 mg once a day, diltiazem drip, fish oil 1000 mg p.o. b.i.d., hydralazine 10 mg IV q.8 h ours p.r.n., Lopressor 25 mg p.o. b.i.d., Zosyn 2.25 grams IV q.8 hours, Renvela 800 mg p.o. t.i.d. w ith meals, Zocor 10 mg at bedtime, normal saline 75 mL per hour, status post vancomycin. PAST MEDICAL HISTORY: 1. ESRD -- currently on maintenance hemodialysis Friday, Friday, and Friday. 2. Hypertension. 3. History of noncompliance. 4. Hyperlipidemia. 5. Patient has also chronic atrial fibrillation. 6. History of nonischemic cardiomyopathy. 7. Status post mesenteric ischemia. 8. Peripheral vascular disease. PAST SURGICAL HISTORY: 1. Status post right fem-pop. 2. Status post appendectomy. 3. Status post cuffed dialysis catheter placement. 4. Status post AV fistula placement. 5. Status post cardiac ablation therapy. 6. Status post exploratory laparotomy for lysis of adhesions. 7. Status post incisional hernia repair with mesh. 8. Status post appendectomy. ALLERGIES: None. TRAUMA: None. IMMUNIZATIONS: Up-to-date. HOSPITALIZATIONS: Please see past medical history. SOCIAL HISTORY: The patient is and lives in [place], currently not working, several chi ldren. Status post blood transfusion. Currently, no smoking, alcohol, or IV drug use. FAMILY HISTORY: No family history of ESRD. PHYSICAL EXAMINATION: VITAL SIGNS: Blood pressure is 145/85, heart rate is 110, temperature 98.1, respiratory rate 18, pul se ox 99%. GENERAL EXAM: Noted to be awake, alert, comfortable, not in overt distress. SKIN: Adequate turgor. HEENT: Pinkish conjunctivae. Anicteric sclerae. NECK: No neck mass or carotid bruits, no JVD. CHEST: No deformities. LUNGS: Clear breath sounds. No wheezing, no crackles. HEART: Normal sinus rhythm. No murmur, no gallops, no rubs. ABDOMEN: Globular, soft, nontender, no masses. EXTREMITIES: No edema, no deformities. Right leg is warm. NEUROLOGICAL EXAM: Awake, oriented to 3 spheres. Moving all extremities. No tremors or asterixis. LABORATORY DATA: Laboratories of 05/25/2017, white count 8.9, hemoglobin 8.6, sodium 137, potassium 4.2, chloride 105, carbon dioxide 19, BUN 31, creatinine 7.54, calcium 8.2. ASSESSMENT AND PLAN: 1. End-stage renal disease, stable. We will continue current Friday, Friday, Friday dialysis. F luid removal as tolerated. 2. Right leg numbness - we may need to check circulation of the right lower extremity. He does have right cuffed dialysis catheter located there. We need to probably reconsult Dr. Dailey. 3. Anemia, continuing weekly Epogen 10,000 units subcutaneously. ADDENDUM: Patient was noted to have fell down at a restroom, complaining of right leg numbness. He was noted to be hypertensive and tachycardic at that time. The nurses were instructed to transfer th e patient to the Intensive Care Unit for closer monitoring.
--- NOTE | 2017-05-25 13:14 | ULT ---
ABDOMINAL SONOGRAM: HISTORY: Abdominal pain. FINDINGS: The gallbladder has a normal appearance. There is minimal adjacent fluid. No stones are apparent. The common duct is 0.3 cm diameter. The liver is heterogeneous without focal mass or intrahepatic bi liary dilatation. A catheter is seen within the inferior vena cava. Visualized portions of the sple en, aorta, and pancreas are unremarkable. Small cysts arise from the cortex of each kidney. IMPRESSION: No significant abnormalities are demonstrated. POS: CHELSEA
--- NOTE | 2017-05-25 13:33 | HP ---
HISTORY OF PRESENT ILLNESS: Mr. Jorge is a 71-year-old male patient admitted to the hospital [facility] at 3:[address] Dominguez. Patient with end-stage renal disease, followed by Dr. Alicea, he is on reg ular dialysis via a right femoral vein cuffed tunnel dialysis catheter. The patient apparently prese nted in the emergency room in [place] on 05/23/2017 for fever to 102 degrees and upper abdominal pain. The patient was thought to have chest pain in our emergency room, but there were some miscomm unication as the patient Kyrgyz speaking only. He states he never had any chest pain. His pain has been epigastric with nausea and vomiting. The patient dialyzes Friday, Friday, and Friday, has a history of chronic atrial fibrillation and in 10/2014, he had an ultrasound without evidence of gall stones. He has not had a cholecystectomy. Patient since being admitted has complains of pain in his right foot and coolness. He is able to slightly move his right toes and foot. He has a history of right ksbgg-kas-zafb femoral popliteal artery bypass grafting and right iliac stent by Dr. Nichols in the past. The patient was noted on evaluation to have a pulseless lower extremity and has been seein g Dr. William. Interventional arteriography was planned today to evaluate the right leg. The possibil ity above knee amputation is made or has considered. The patient consents this of indicated. He has a right femoral vein cuffed tunnel dialysis catheter. He has palpable left femoral artery pulse, le ft popliteal pulse and pedal pulses. His dialysis access history is complicated in that he has occlu ravinder of his right subclavian vein pacemaker left subclavian vein, has a HeRO graft extending from his right cephalic vein deltopectoral area to his left internal jugular vein extending into the superior vena cava. Left internal jugular vein and right internal jugular vein are thrombosed. Patient had been seen in my office in April and the family was to call me when they are ready to schedule a le ft thigh dialysis graft which would be his only dialysis option at this point. With his recent fever , it is considered a possibility that he may have bacteremia related to his dialysis catheter. Other sources are considered. Blood cultures are pending. He has been placed on vancomycin and Zosyn and has not had a fever today. Patient denies having any abdominal pain at this time, even though recor ds of him had epigastric pain on admission. At this point, I would recommend a stat ultrasound of the gallbladder and abdomen and then after eval uation of his right leg, he will need a CAT scan of the abdomen and pelvis. It would be best to try to leave his right groin dialysis catheter in place and use that for dialysis if possible and save hi s left thigh for dialysis graft more permanent access to avoid line sepsis in the future. He has campos ited as far as his dialysis access. Currently, they are using his right groin catheter for dialysis access. If he does need amputation of his right leg while in the operating room, we could look with ultrasound and see if a central line could be placed. He has limited access. We could consider left arm fistula in the future prior to resort into his left thigh. He has had a c ontrast venogram in his left arm and there is mild stenosis near the pacemaker lead, but there was no occlusion. The patient did not follow up with me after that study until I saw him in early April . ALLERGIES: None. TOBACCO: None. ALCOHOL: None. HOME MEDICATIONS: Plavix, Renvela, omega 3, Prilosec, metoprolol. Currently on vancomycin and Zosyn . PAST SURGICAL HISTORY: Extensive. On 07/2006, electrocardioversion for atrial flutter, Dr. Brady rivera. On 11/2006, acute appendicitis with abscess with diminished cardiac ejection fraction 20%. Right lower quadrant incision McBurney's point to the midline, he converted to a midline laparotomy for ap pendectomy, drainage of abscess. On 06/2007, laparoscopic adhesiolysis, laparoscopic polyester auto- suture 8/10 inch mesh of incisional hernia. Postoperatively, the patient suffered leak and cared for another facility, had an operation there for washout, closure and midline defect. He developed an i ncisional hernia after that and on 02/10/2008, underwent incisional hernia repair, laparoscopic adhes iolysis for more than 1 hour and laparoscopic Proceed mesh placement. Repair of incisional hernia wi th 20 x 25 cm Proceed mesh. On 09/01/2009, incisional hernia repair complex with preperitoneal Proce ed mesh 20 x 25 cm utilizing component separation technique lysis of adhesions for more than an hour, complicated wound healing by secondary intention debridement of wound VAC application. On 1, placement of right IJ cuffed tunnel dialysis catheter. On 02/13/2011, right arm primary fistula, perforating branch antecubital vein to proximal radial artery outflow basilic vein, cephalic vein. O n 06/18/2011, right fem-pop bypass graft. Dr. Lawrence Nichols above the knee PTFE graft. On 08/05/2011 , bedside debridement of necrotic Achilles tendon due to a pressure sore. On 08/08/2011, left IJ florin l lumen Thomson catheter for long-term IV antibiotic administration. On 04/11/2014, Dr. Betancourt central line placement. On 04/11/2014, right femoral vein temporary dialysis catheter after cardiac arrest, pacemaker dependent respiratory failure. Thrombosed right arm fistula in need of emergent dialysis access. On 07/06/2015, Yoana on cystoscopy for ureteral stone and fever. On 04/05/2017, Dr. High nt femoral vein temporary dialysis catheter. PAST MEDICAL HISTORY: End-stage renal disease on maintenance dialysis using right arm fistula, malfu nction of right arm fistula. Type 2 diabetes mellitus, patient is ambulatory at home and has [facility] support. The patient has had a cardiomyopathy, ejection fraction improving for 20-50% followed Dr. Betancourt. PHYSICAL EXAMINATION: GENERAL: Patient is alert and oriented, in ICU. VITAL SIGNS: Height 5 foot 6 inches, 184 pounds, 29 BMI, heart rate currently 130, 153/70. LUNGS: Clear to auscultation. CARDIAC: Sinus tachycardia. ABDOMEN: Soft, mild tenderness diffusely. EXTREMITIES: Thrombosed fistula right upper extremity, pacemaker in left chest. HeRO dialysis graft , right deltopectoral cephalic vein crosses the manubrium to left IJ and right femoral vein hemodialy sis catheter. Palpable left femoral, popliteal, dorsalis pedis pulses by left. Right leg not palpab le femoral, popliteal pedal pulses. He has trace movement of his right toes, limited movement of his right ankle. He is cold from his toes to his mid leg below the knee. LABORATORY DATA: White count 12, hemoglobin 9.5. Basic metabolic profile, renal failure changes on dialysis status. ASSESSMENT AND PLAN: 1. Ischemic right leg. We will plan amputation of the right leg above the knee if Dr. William is not able to reestablish flow to the right leg. 2. Febrile with a history of atrial fibrillation, atrial flutter, status post ablation, nonischemic cardiomyopathy, resolved to normal EF about a year ago. 3. Difficult dialysis access. Plan was to place a left arm fistula in the future. He has had previ ous contrast venogram noting the subclavian vein to be patent with the stenosis. The only other opti on besides the left arm would be to place a left arm dialysis graft. Currently, he has an IV in his left antecubital and this should be removed as soon as possible. We will plan placement of left femo ral vein triple lumen catheter. We will probably need to have his right femoral vein temporary dialy sis catheter removed considering his fever, but we will await cultures. 4. Abdominal pain. There is some mention of mesenteric ischemia. The last CAT scan of record at [facility] facility, 07/2015, changes consistent with chronic kidney disease on hemodialysis status, calculi nonobstructing kidneys, peritoneal nodularity. The patient had a bout of biliary scan 04/2014 with n ormal gallbladder ejection fraction and imaging. Probably would plan a CAT scan of the abdomen and p laura prior to discharge based on his history of epigastric pain and mild abdominal tenderness on exa m.
[2017-05-25] MEDS ORDERED: Heparin 10,000 UNITS/1 ML VIAL ONE (13:58)
[2017-05-25] MEDS ORDERED: SODIUM CHLORIDE 0.9% CATH SCH (14:30)
[2017-05-25] MEDS ORDERED: ACTIVASE CATH SCH (14:30)
--- NOTE | 2017-05-25 15:07 | PDOC.EVN ---
Event Note - Event Note Event Note: Jonathan jay called shortly before 0900 thid morning, at the reuest of the attending Dr Clay Dominguez. I was outside the room at the time and immediately responded. PT is a 71yo CH admitted for sepsis, history of ESRd on HD, and acute RLE pain. Pt developed rapid heart rate, and elevated BP while on the toiler. Dr Dominguez called, instructed Jonathan misty to be called.. Jonathan misty activated and as i responded, pt assisted back to bed On my arrival, BP was 230s over 120s. Pr with HR 180s, Afib with RVR on monitor. Immediately ordered 10mg IV hydralazine and 15mg IV cardizem and a cardizem drip starting 5mg/hr Pt complained of no CP or SOB, but looked diaphoretic, complained of severe RLE pain. Doppler was obtained, but i could not fins and RLE pulses in the PT, DPor popliteal arteries, inguinal femoral pulse easily palpable. I ordered 50mcg of fentanyl, stat areterial ultrasound and transferred pt to CCU. Exam: Vitlas reviewed, please see Code green sheet Gen: pt diaphoretic, tachypneic and anxious. HEENT normal. Lungs clear, except for bibasilar crackles CV: tachym irregular, no appreciable mumurs Abd soft, NT, good bowel sounds. Ext, LLE normal, RLE cool below the knee. HD aaccess catheter to left groin intact, surgical wound well healed. just proximal, there was palpable phlebitis or subcutaneous infectiona dn redness with warmth. No other skin lesion, no neuro deficits except for numbness and tingling to RLE below the knee. CBC, CMP, lactic acid, mag, and cardiac profile ordered. BS glucose normal lactic acid 4.0, CBC with elevated WBC, stable H/H, and CMP relatively normal for a pt with ESRD. at 0940, pt transferred to CCU, stat arterial doppler with virtually no arterial flow, CT surgery consulted for angio and possible LE amputation. at the completion, i contacted Dr Dominguez to update him and we had arrived on site. 40 minutes of critical care were provided at the bedside, care turned over to Dr Dominguez is attending
[2017-05-25] MEDS ORDERED: Fentanyl 100 MCG/2 ML VIAL ONE ×2 (15:58→16:08)
[2017-05-25] MEDS ORDERED: Midazolam HCl 2 mg/2 ml Vial ONE (15:58)
[2017-05-25] MEDS ORDERED: Protamine Sulfate 50 MG/5 ML VIAL ONE (16:00)
[2017-05-25] MEDS ORDERED: Heparin 5,000 UNITS/ML VIAL ONE (16:00)
[2017-05-25] MEDS ORDERED: Succinylcholine Chloride 20 MG/ML 10 ml SYRINGE FS ONE (16:02)
[2017-05-25] MEDS ORDERED: Esmolol 100 MG/10 ML VIAL ONE (16:02)
[2017-05-25] MEDS ORDERED: Propofol 200 MG/20 ML VIAL ONE (16:02)
[2017-05-25] MEDS ORDERED: Metoprolol Tartrate 5 MG/5 ML VIAL ONE (16:02)
[2017-05-25] MEDS ORDERED: PHENYLEPHRINE-NS 100 MCG/ML 10 ML SYRINGE ONE (16:02)
--- NOTE | 2017-05-25 16:48 | CON ---
DATE OF CONSULTATION: 05/25/2017 CARDIOLOGY CONSULTATION REASON FOR CONSULTATION: Atrial fibrillation with RVR. HISTORY OF PRESENT ILLNESS: Mr. Jorge is a 71-year-old gentleman, Fijian speaking mostl y, who comes to the hospital for fever and upper abdominal pain. He was found to have an occluded gr aft to the right leg and is scheduled to undergo an attempt at opening it and possibly amputation aft er that. Cardiology is being consulted as he is now in atrial fibrillation with rapid ventricular re sponse. Heart rates in the 180s-200s. A Jonathan Wood was called for this. On my evaluation, he has b een started on labetalol drip and his heart rate is down to the 140s to 160s. PAST MEDICAL HISTORY: 1. End-stage renal disease, on hemodialysis by Dr. Alicea. 2. Peripheral vascular disease, status post bypass in the past. 3. Coronary artery disease. 4. Hypertension. 5. Pacemaker, due to sick sinus syndrome. 6. History of atrial fibrillation. 7. Ischemic cardiomyopathy. 8. History of mesenteric ischemia. PAST SURGICAL HISTORY: 1. Pacemaker placement. 2. Atrial flutter ablation in the past. 3. Exploratory laparotomy for lysis of the deviations. 4. Incisional hernia repair with mesh. 5. Right femoropopliteal bypass. 6. Cuffed dialysis catheter. 7. Right arm hemodialysis catheter. 8. Appendectomy. OUTPATIENT MEDICATIONS: Include, 1. Zocor 10 mg a day. 2. Metoprolol 25 mg b.i.d. 3. Plavix 75 mg a day. 4. Cartia 240 mg a day. 5. Nifedipine 30 mg a day. 6. Nexium 20 mg daily. ALLERGIES: No known drug allergies. FAMILY HISTORY: Noncontributory. SOCIAL HISTORY: He continues to smoke half a pack a day. No alcohol or drug use. REVIEW OF SYSTEMS: A 12-point review of systems was done and is all negative unless stated in the hi story of present illness. PHYSICAL EXAMINATION: VITAL SIGNS: Temperature 98.3, pulse 125, respiratory rate 18, satting 98% on room air. GENERAL: Awake, alert, oriented x3, in no distress. HEENT: Normocephalic, atraumatic. NECK: Supple. LUNGS: Mild crackles at the bases. CARDIOVASCULAR: S1, S2, no S3 or S4. No murmurs or rubs. ABDOMEN: Soft, positive bowel sounds. EXTREMITIES: No edema. Right leg is cold from below the shins with nonpalpable pulses. LABORATORY WORK: Reviewed, Coags, chemistry and Hematology. Telemetry was reviewed. EKGs reviewed, AFib, RVR. ASSESSMENT AND PLAN: 1. Atrial fibrillation with rapid ventricular response. 2. Ischemic right leg. 3. End-stage renal disease, on hemodialysis. 4. Fever. 5. Possible infection on dialysis catheter on his right femoral vein. PLAN: 1. We will start an amiodarone drip for better rate control, little bit better, this is most likely related to his acute leg issue. Hopefully, we will get some level of rate control with amiodarone. 2. The patient is severely ill and would not be unexpected. Thank you for letting us to participate in the care of your patient. We will continue to follow.
--- NOTE | 2017-05-25 17:17 | CON ---
DATE OF CONSULTATION: 05/25/2017 HISTORY OF PRESENT ILLNESS: This is a 71-year-old patient with end-stage renal disease who was admit jose last night with some abdominal pain and fever. This morning, he developed the rather sudden onse t of severe pain in his right lower leg from the knee distally. He became quite tachycardic with thi s. PAST MEDICAL HISTORY: Significant for a number of vascular interventions on his legs, the majority o f which had been done in the [place] area. Dr. Nichols performed a right femoral to above knee bypass in 2011 with a [place] graft. The patient failed to return for followup, but according to his daug hter, has had multiple interventions on both legs in the [place] area since that time and was told th at the ultimately would require an amputation. PAST MEDICAL HISTORY: Otherwise significant for hypertension, coronary artery disease and chronic at rial fibrillation. PAST SURGICAL HISTORY: Includes the fem-pop bypass well as multiple access procedures on his right a rm for his AV fistula. He has had previous appendectomy and a number of abdominal procedures for inc isional hernia repair. ALLERGIES: He has no known allergies. MEDICATIONS: Include Plavix, Zocor, Cartia, nifedipine and Nexium. SOCIAL HISTORY: The patient continues to smoke at least a half pack of cigarettes a day. PHYSICAL EXAMINATION: GENERAL: He is an alert and cooperative gentleman in significant discomfort due to his right leg chapis n. HEENT: He appears to have a swollen face. LUNGS: Clear to auscultation. CARDIAC: Tachycardia and fast enough for that I can detect murmurs. ABDOMEN: Obese, mild diffuse tenderness. No guarding or rebound. EXTREMITIES: He has a palpable femoral pulse bilaterally. He has no distal pulses by Doppler in his right leg. He is unable to move the toes of his foot, although he still has some dorsiflexion. NEUROLOGIC: The leg is cool at the ankle and foot level on the right. LABORATORY AND X-RAY FINDINGS: I have reviewed his angiograms from 2011 demonstrating 2-vessel runof f, although both of these vessels were small and diaseased. ASSESSMENT AND PLAN: I suspect that these said interventions on these vessels and ultimately his fem -pop graft is occluded, probably due to poor runoff. I have discussed the situation with the patient and family. Daughter is serving as manager equity. His options include primary [id number] amputati on versus attempts at thrombolytic therapy. I think the yield with intervention is going to be extre andrey low; however, they wish to proceed with intervention and we will get this done as soon as carissa braxton
[2017-05-25] MEDS ORDERED: Propofol 1,000 MG/100 ML VIAL IV ONE (18:22)
[2017-05-25] MEDS ORDERED: Morphine 2 MG/ML SYRINGE SLOW IVP PRN (18:30)
[2017-05-25] MEDS ORDERED: DISCONTINUE PREVIOUS NARCOTIC PAIN MEDICATIONS AND BENZODIAZEPINES FS SCH (18:30)
[2017-05-25] MEDS ORDERED: Lorazepam 2 MG/ML VIAL SLOW IVP PRN (18:30)
[2017-05-25] MEDS ORDERED: fentaNYL Citrate/PF 2,000 MCG in Sodium Chloride 0.9% 60 ML IV SCH (18:30)
[2017-05-25] MEDS ORDERED: Ventilator Sedation Protocol 1 EACH FS SCH (18:30)
[2017-05-25] MEDS: Albuterol Sulfate 2.5 mg/3 ml Neb NEB SCH (19:15)
--- NOTE | 2017-05-25 19:59 | RAD ---
PORTABLE SUPINE CHEST: History: Intubation. Comparison: 05-24-17 FINDINGS/IMPRESSION: ET tube is in place. Tip is just above the jairon. Lungs are poorly evaluated but there appears to be mild vascular congestion which his more prominent when compared to the prior study. POS: ILANA
--- NOTE | 2017-05-25 20:23 | OP ---
PREOPERATIVE DIAGNOSIS: Embolus to right deep femoral artery with ischemic leg. PROCEDURE: Right deep femoral artery exploration and embolectomy SURGEON: Dr. William. REFRIGERATION MECHANIC: Dr. Dailey ANESTHESIA: General. ESTIMATED BLOOD LOSS: 50 mL PROCEDURE IN DETAIL: After adequate anesthesia had been obtained, incision was made inferior and lat eral to the previous groin incision. Dissection was then carried down, isolating the profunda femora l artery at its origin and dissecting it distally to its major bifurcation, which was about 2.5 cm. Clamps were applied, transverse arteriotomy performed. Embolectomy #3 catheter was passed down the m edial branch where a thrombus was removed and then backbleeding was brisk. Repeat passage demonstrat ed no further thrombus. The lateral branch was then treated similarly and no thrombus was removed an d there was good back bleeding. The incision was then closed with a double layer of 7-0 Prolene sutu re and the wound was then closed in layers. Attention was then turned to performing an above knee am putation, which Dr. Dailey will dictate.
--- NOTE | 2017-05-25 20:58 | OP ---
DATE OF PROCEDURE: 05/25/2017 PREOPERATIVE DIAGNOSIS: Right subclavian vein occlusion, HeRO graft present, right cephalic vein del topectoral groove to left internal jugular vein into the superior vena cava, left subclavian vein pac emaker, xgoc-zn-[id number] stenosis left subclavian vein, peripheral arterial disease with right iliac artery stent, occluded right fem-pop bypass graft without adequate runoff with ischemic rest pain, ri ght leg, patent femoral, popliteal, and pedal pulses left, end-stage renal disease, febrile with righ t femoral vein hemodialysis catheter on vancomycin and Zosyn, failed arteriographic interventional de clotting right fem-pop graft. SURGEON: Angel Dailey M.D. ANESTHESIA: General and 1 unit of blood transfused (preoperative hemoglobin of 8.8). PROCEDURE: Right mudgf-lag-apbo amputation. Placement of left femoral vein Trialysis catheter. Rem oval of right femoral vein hemodialysis catheter. Right femoral vein triple lumen catheter (Dr. Stephane garcia assisted Dr. Shlomo William with right profunda femoral artery thrombectomy). PROCEDURE: The patient was taken to the operating room where under general anesthesia after Dr. Arvind William attempted limb salvage right interventional with findings of inadequate runoff to support thr ombectomy, right fem-pop graft. Dr. Shlomo William completed the thrombectomy in the right profunda fem oral artery, a right allqu-apm-xmiy amputation was undertaken. The decision was made for a [place] incision for right hypgg-vfe-gacr amputation and carried down through the skin and subcutaneous tiss ue to the femur. The sciatic nerve and vascular bundles were divided between clamps and ligated with 2-0 and 0 Vicryl ties. Femur cleared of periosteum cephalad and amputated with the Gigli saw, yessi hened edge with a rasp. Wound irrigated. Hemostasis gained with the cautery and 2-0 Vicryl ties. F ascia approximated with interrupted sthyxh-zt-ipvhg sutures of 2-0 Vicryl and skin with stephanie. Ariel rile dressing applied. Triple lumen catheter placed in right femoral vein using Seldinger technique staying clear of the inc ision for the profunda femoral artery thrombectomy performed by Dr. William. Trocar catheter cannulate d the femoral vein and J-wire threaded. Trocar catheter removed. Seldinger technique used to place a triple lumen catheter securing it with 3-0 silk suture. Biopatch applied, a sterile dressing appli ed. Each port aspirated blood and flushed with saline solution. Prior to this procedure, the right femoral vein hemodialysis catheter removed, removing the sutures, removing the catheter and cuff intact and holding the pressure of hemostatic prior to preparing for t he surgical procedure on the right leg. Left femoral vein Trialysis catheter placed using the Seldinger technique, ChloraPrep under general a nesthesia and femoral vein accessed with the trocar catheter. J-wire threaded. Trocar catheter robert shaka. Skin incised and enlarged sharply. Smaller and medium-sized dilators placed over the J-wire in to the femoral vein and removed. Distal port of the Trialysis catheter placed in the femoral vein an d J-wire removed. Each port aspirated blood and flushed with saline solution and then heparinized sa line solution and catheter secured with 2 interrupted sutures of 3-0 nylon. Biopatch and a sterile d ressing applied.
[2017-05-25] MEDS: Metoprolol Tartrate 50 MG TAB PO SCH (21:41)
[2017-05-25] MEDS: Simvastatin 20 MG TAB PO SCH (21:41)
[2017-05-25 22:33] LABS: Actual Bicarbonate (HCO3a) 19.5 mEq/L (22-26); Base Excess (BEa) -4.6 mEq/L (0 (+/-) 2.5); CO2 Tension 31.7 mmHg (35.0-45.0); Hemoglobin (Hb) 8.6 g/dL (14.0-18.0); O2 Tension (PaO2) 199.6 mmHg (80.0-100.0); pH, Arterial 7.41 (7.35-7.45)
[2017-05-25 22:34] LABS: ALV-art Gradient 188.575 (0-20); Analyzer IN Cardio ER; Puncture Site ALINE
--- NOTE | 2017-05-26 00:23 | CON ---
DATE OF CONSULTATION: 05/25/2017 HISTORY OF PRESENT ILLNESS: Mr. Jorge is an unfortunate end-stage renal disease patient, who has very limited vascular access and severe vascular disease. He presented today with abdominal pain and fever. He had sudden onset of severe pain in his right lo wer extremity today. He subsequently undergone vascular evaluation with Dr. William and has had a high amputation for vascular occlusion. He was transferred to critical care unit and intubated. PAST MEDICAL HISTORY: Remarkable for hypertension, coronary disease, and atrial fibrillation. PAST SURGICAL HISTORY: Remarkable for fem-pop bypass, multiple vascular access procedures, appendect freddie, and hernia repairs. SOCIAL HISTORY: He is a smoker unfortunately. He is not a daily drinker and he does not use drugs. ALLERGIES: He has no drug allergies. MEDICATIONS: Prior to admission, he was on Plavix, Zocor, Cartia, nifedipine, and Nexium. PHYSICAL EXAMINATION: GENERAL: He is sedated for mechanical ventilation. He is in no distress. VITAL SIGNS: Blood pressure 145/94, heart rate was 109, respiratory rate was in the teens. HEENT: Pupils are equal. Sclerae are anicteric. NECK: Supple. LUNGS: Clear anteriorly. HEART: Regular rhythm. ABDOMEN: Soft. EXTREMITIES: Bandaged. LABORATORY AND X-RAY FINDINGS: Chest radiograph postprocedure shows proper placement of the endotrac heal tube. Mild increase in interstitial markings was seen consistent with pulmonary edema. White c ount was reviewed by me. White count is 12.6, hemoglobin 9.5, platelets 222. Sodium 137, potassium 3.9, chloride 103, bicarbonate 21, BUN 34, creatinine 8.05. IMPRESSION: 1. Respiratory failure, status post amputation. 2. End-stage renal disease. 3. Severe atherosclerotic vascular disease, ongoing tobacco use. PLAN: Continue mechanical ventilation. His blood gas shows a pH of 7.1, pCO2 of 31, pO2 of 199. He will probably have dialysis tomorrow, then hopefully we can wean him to extubation. Critical care time, 30 minutes.
[2017-05-26] MEDS: Albuterol Sulfate 2.5 mg/3 ml Neb NEB SCH ×4 (00:37→18:51)
[2017-05-26] MEDS ORDERED: Fentanyl 20 MCG/ML 250 ML IVPB SCH (01:58)
[2017-05-26 05:52] LABS: #Eosinphils 0.1 thou/uL (0.0-0.7); #Lymphocytes 0.9 thou/uL (1.20-3.40); #Monocytes 0.7 thou/uL (0.11-0.59); %Basophils 0.3 % (0.0-1.0); %Lymphocytes 10.5 % (21.0-51.0); %Monocytes 8.2 % (0.0-10.0); Mean Corpuscular HGB CONC 31.5 g/dL (32.0-36.0); Mean Corpuscular Hemoglobin 27.9 pg (27.0-31.0); Mean Corpuscular Volume 88.3 fl (80.0-94.0); Mean Platelet Volume 8.2 fL (7.4-10.4); Platelet Count 148 thou/uL (130-400); RBC Distribution Width 14.1 % (11.5-14.5); Red Blood Cell (RBC) Count 2.86 mill/uL (4.70-6.10); White Blood Cell (WBC) Count 8.8 thou/uL (4.8-10.8)
[2017-05-26 06:03] LABS: Anion Gap 17 mmol/L (10-20); BUN (Urea Nitrogen) 40 mg/dL (8.4-25.7); Calc. Creatinine Clearance 9 mL/min (70-130); Calcium 7.7 mg/dL (7.8-10.44); Carbon Dioxide 17 mmol/L (23-31); Chloride 106 mmol/L (98-107); Estimated GFR-MDRD 6; Glucose 94 mg/dL (80-115); Potassium 4.2 mmol/L (3.5-5.1); Sodium 136 mmol/L (136-145)
[2017-05-26] MEDS: Piperacillin/Tazobactam 2.25 GM in Sodium Chloride 0.9% 100 ML IVPB SCH ×3 (06:10→22:10)
--- NOTE | 2017-05-26 07:23 | CCL ---
PROCEDURE NOTE: DATE: 05/25/17 PREOPERATIVE DIAGNOSIS: Ischemic right lower extremity with thrombosed graft. POSTOPERATIVE DIAGNOSIS: Ischemic right lower extremity with thrombosed graft. PROCEDURE: Aortogram, right lower extremity runoff, thrombolytic therapy, and balloon angioplasty o f the graft and popliteal artery, and then attempted thrombolysis of the profunda femoral artery. CONTRAST: 64. FLUORO: 24.3 minutes. TPA: 10.7 minutes. PROCEDURE DETAILS: After adequate anesthesia had been obtained, ultrasound puncture of the left common femoral artery wa s performed. The patient then had runoff of the left common femoral region and then wire and catheter placed into the aorta where an iliofemoral runoff was obtained. Contra catheter was used to direct t he wire to the right side where runoff was obtained and patient had a patent external iliac stent. Ru noff of the right leg revealed patent right common femoral, patent profunda, and occluded graft to th e femoral popliteal segment with reconstitution of the popliteal and perhaps partial runoff via the p eroneal artery. Following this, the [place] angled glide catheter was used to enter the graft and was ad vanced down into the popliteal artery where runoff was obtained. The patient was noted to have thromb us at that point. TPA was given by hand injection x2 mg within marked improvement in the clot burden in the popliteal artery. AngioJet was then introduced, following which AngioJet of the graft was perf ormed. Initially, it was with power pulse forward and backward in the graft for a total of 7 mg. The AngioJet was then deployed from proximal to distal, at which time the AngioJet failed and was remove d. Contrast angiography showed significant clot burden within the graft itself and also new clot marlyn en within the profunda femoral artery. The wire was removed from the popliteal artery in an 0.014 wir e advanced into the profunda artery where a Pronto was used to try and aspirate with only a small debra unt of thrombus being removed. TPA was then given, another 2 mg dose, down the profunda with only adv ancement of what was probably fibrotic thrombus into the distal profunda artery. The case was then te rminated at that point and attention will be given to embolectomy surgically with above knee amputati on.
[2017-05-26] MEDS: Sevelamer Carbonate 800 MG TAB PO SCH ×3 (07:35→18:40)
[2017-05-26] MEDS: Calcium Carbonate 500 MG TAB PO SCH ×3 (07:35→18:40)
--- NOTE | 2017-05-26 08:29 | PDOC.CTH ---
<Karime Esteban - Last Filed: 05/26/17 11:50> Cardiology Progress Note - Subjective The pt seen and examined. No overnight events. No cardiac complaints. The pt is still intubated with vent sedation. Family at bedside. - Objective Vital Signs Temp Pulse Resp BP Pulse Ox 05/26/17 07:36 12 05/26/17 07:01 120 H 120/85 05/26/17 07:00 100 F H 05/26/17 06:59 118 H 12 97 05/26/17 06:00 12 05/26/17 04:00 98.9 F 12 05/26/17 02:37 96 05/26/17 02:00 12 05/26/17 00:37 100 12 100 05/26/17 00:00 98.9 F 12 05/25/17 22:55 90 05/25/17 22:00 12 Weight 184 lb 3.2 oz 05/25/17 05/26/17 05/27/17 06:59 06:59 06:59 Intake Total 1390 2626 Output Total 0 0 0 Balance 1390 2626 0 - Physical Examination General/Neuro: other: Lungs: CTA Heart: other: (irregular) Abdomen: soft Extremities: other: (2+ pulses to LLE; Rt AKA) - Telemetry Telemetry Rhythm: Afib/Afutter HR 90-120s - Labs Result Diagrams: 05/26/17 05:24 05/26/17 05:24 Troponin/CKMB CK-MB (CK-2) 1.0 ng/mL (0-6.6) 05/25/17 09:12 Troponin I 0.041 ng/mL (< 0.028) H 05/25/17 09:12 - Assessment/Plan 1. Afib/AFlutter with RVR - HR 110-130s on Amiodarone drip; start Digoxin IV push from today; wait till the pt undergo HD today; hold ing Anticoagulant due to s/p Rt AKA on 05/25/17; cont. monitor on tele 2. Ischemia to Rt Leg with S/p Rt Deep Fem artery exploration and emblectomy and Rt AKA - stable; on Plavix; managed by surgeon; 3. Ischemic CMY - Echo on 05/2014 showed EF 50-55% with Lt artrial dilation and mild AR and MR; stable; cont. monitor 4. HTN - stable with Metoprolol; cont. monitor 5. ESRD with HD on MWF - managed by nut threader 6. s/p PM placement on 05/2014 - cont. monitor on tele 7. Hyperlipidemia - on Statin 8. current smoker - per family, he still smokes 4-5/day; smoking cessation education given to the family MAR reviewed Review of Systems - Review of Systems Constitutional: reports: see HPI EENTM: reports: see HPI Respiratory: reports: see HPI Cardiac (ROS): reports: see HPI ABD/GI: reports: see HPI : reports: see HPI Musculoskeletal: reports: see HPI <Nelly Betancourt - Last Filed: 05/26/17 18:49> Cardiology Progress Note - Objective Vital Signs Temp Pulse Resp BP Pulse Ox 05/26/17 18:25 109 H 05/26/17 18:00 12 05/26/17 16:00 12 05/26/17 15:07 100 130/71 05/26/17 15:05 99 12 97 05/26/17 15:00 99.9 F H 05/26/17 14:00 12 05/26/17 12:07 132 H 05/26/17 12:00 15 05/26/17 11:52 123 H 138/99 H 05/26/17 11:36 100.1 F H 05/26/17 10:00 12 05/26/17 09:00 100.2 F H 05/26/17 07:37 100.0 F H 115 H 12 100 05/26/17 07:36 12 05/26/17 07:01 120 H 120/85 05/26/17 07:00 100 F H 05/26/17 06:59 118 H 12 97 Admit Weight 184 lb Weight 184 lb 3.2 oz 05/25/17 05/26/17 05/27/17 06:59 06:59 06:59 Intake Total 1390 2626 1074 Output Total 0 0 0 Balance 1390 2626 1074 - Labs Result Diagrams: 05/26/17 05:24 05/26/17 05:24 Troponin/CKMB CK-MB (CK-2) 1.0 ng/mL (0-6.6) 05/25/17 09:12 Troponin I 0.041 ng/mL (< 0.028) H 05/25/17 09:12 - Assessment/Plan Pt. seen and eval. by me. I agree with the A/P by the TEST DRIVER. He did have dialysis today but there were some problems with the new catheter and not very much fluid was removed.He remains in Afib. Will continue IV amiodarone. jail prognosis is very poor. Chest : mild rales bilat. CV: irreg/irreg.. Pt. remains on the ventilator.
--- NOTE | 2017-05-26 08:38 | PRG ---
DATE OF SERVICE: 05/26/2017 SUBJECTIVE: Mr. Jorge is presently intubated. Hopefully, he will be weaned today or tomorrow. H e is postop day #1, status post right AKA by Dr. Dailey. The patient is responding on the ventilator . Daughter is at the bedside. OBJECTIVE: VITAL SIGNS: Blood pressure 141/87, pulse 115, respirations 12, temperature 100.0. HEART: Regular rate and rhythm. LUNGS: Occasional rhonchi bilaterally. ABDOMEN: Soft, normal bowel sounds. EXTREMITIES: Status post right AKA, left dorsalis pedis pulses 2+. LABORATORY DATA: Sodium 136, potassium 4.2, CO2 17, creatinine 9.22, BUN 40, blood sugar 94. ASSESSMENT: 1. Respiratory failure on the ventilator at this time. Hopefully, can be weaned today. 2. Postop day #1, status post right above knee amputation. 3. Severe atherosclerotic vascular disease, coronary artery disease. 4. Tobacco abuse. 5. Hypertension. 6. Diabetes. 7. Hyperlipidemia. 8. Full code 9. End-stage renal disease on dialysis with pancytopenia. 10. Atrial fibrillation with rapid ventricular response, resolved. 11. Pacemaker in place. 12. Nonischemic cardiomyopathy. 13. History of mesenteric ischemia. PLAN: 1. Prognosis is poor. Daughter well aware of this. However, he remains a full code. 2. Presently on Zosyn and vancomycin. 3. Dialysis 3 times per week through the left Trialysis catheter. 4. Hopefully, can be extubated today. 5. Full code. 6. Continue to monitor electrolytes.
[2017-05-26] MEDS: Clopidogrel Bisulfate 75 MG TAB PO SCH (09:07)
[2017-05-26] MEDS: Fish Oil 1,000 MG CAP PO SCH (09:08)
[2017-05-26] MEDS: Metoprolol Tartrate 50 MG TAB PO SCH ×2 (09:09→20:33)
--- NOTE | 2017-05-26 09:33 | PRG ---
DATE OF SERVICE: 05/26/2017 SERVICE: Renal Medicine. SUBJECTIVE: Mr. Jorge is a 71-year-old male with end-stage renal disease and currently u ndergoing dialysis. I am at the bedside supervising his dialysis. He had a right leg ischemia yeste rday. Surgery evaluated the patient and he underwent a right leg amputation as well as an operative femoral artery exploration with embolectomy with Dr. William. It was then decided to perform an above knee amputation. This morning, the patient is undergoing dialysis. OBJECTIVE: VITAL SIGNS: Blood pressure is 114/68, heart rate 92, pulse ox 100%. GENERAL: He is sedated and intubated on ventilator support. SKIN: Adequate turgor. HEENT: Slightly pale conjunctivae, anicteric sclerae. NECK: No neck mass, no carotid bruits, no JVD. CHEST: No deformities. LUNGS: Decreased breath sounds. HEART: Normal sinus rhythm. No murmur, no gallops, no rubs. ABDOMEN: Globular, soft, nontender, no masses. EXTREMITIES: Status post right AKA. Left leg, positive for edema. MEDICATIONS: Of 05/26/2017, was reviewed. LABORATORY DATA: Of 05/26/2017, white count 8.8, hemoglobin 8, hematocrit 25.2. ASSESSMENT AND PLAN: 1. Right leg ischemia - the patient is status post right femoral artery embolectomy with subsequent right above knee amputation, stable. Surgery is following. 2. Anemia - start Epogen 10,000 units subcu every week. 3. End-stage renal disease. We will continue current Friday, Friday, Friday hemodialysis. He rubalcava s a temporary left femoral dialysis catheter. Fluid removal will be done only as tolerated by the prema santiago. Due to the recent surgery, no heparin use will be done.
[2017-05-26 09:53] LABS: Actual Bicarbonate (HCO3a) 19.6 mEq/L (22-26); Base Excess (BEa) -5.2 mEq/L (0 (+/-) 2.5); Hemoglobin (Hb) 7.8 g/dL (14.0-18.0); O2 Tension (PaO2) 98.2 mmHg (80.0-100.0); pH, Arterial 7.37 (7.35-7.45)
[2017-05-26 09:54] LABS: Analyzer IN Cardio OR; Puncture Site ALINE
[2017-05-26] MEDS: Amiodarone HCl 450 MG, Admixture Fee 1 EACH in Dextrose 5% in Water 250 ML IVPB SCH ×3 (10:11)
[2017-05-26] MEDS: Sodium Chloride 0.9% 1,000 ML IV SCH (10:12)
[2017-05-26 10:27] LABS: Vancomycin, Random 15.2 ug/mL (See Comment)
[2017-05-26] MEDS ORDERED: Sterile Water 10 ML VIAL IVP SCH (11:56)
[2017-05-26] MEDS ORDERED: Activase 2 MG VIAL CATH SCH (11:56)
[2017-05-26] MEDS: Digoxin 0.5 MG/2 ML AMP SLOW IVP SCH ×2 (12:07→18:25)
[2017-05-26] MEDS: Propofol 1,000 MG/100 ML VIAL IV PRN (12:50)
--- NOTE | 2017-05-26 13:15 | PRG ---
DATE OF SERVICE: 05/26/2017 SUBJECTIVE: Terence Jorge was being dialyzed this morning, he is sedated for dialysis. OBJECTIVE: VITAL SIGNS: Heart rate was 120-130, blood pressure 130/99, respiratory rate is 15. LUNGS: Clear. HEART: Regular rhythm. ABDOMEN: Soft. LABORATORY DATA: White count 8.8, hemoglobin 8.0, platelets 148. Sodium 136, potassium 4.2, chloride 106, bicarb 17, BUN 40, creatinine 9.2. IMPRESSION: 1. Respiratory failure, on mechanical ventilation after [id number] amputation. 2. End-stage renal disease. 3. Atrial fibrillation, probably should not extubate him until his heart rate is controlled. PLAN: Continue supportive care. Critical care time 35 min. MTDD
--- NOTE | 2017-05-26 20:23 | EKG ---
Test Reason : Blood Pressure : / mmHG Vent. Rate : 163 BPM Atrial Rate : 192 BPM P-R Int : 000 ms QRS Dur : 074 ms QT Int : 250 ms P-R-T Axes : 000 037 -07 degrees QTc Int : 411 ms Atrial fibrillation with rapid ventricular response with occasional ventricular-paced complexes Abnormal ECG When compared with ECG of 25-MAY-2017 08:50, (Unconfirmed) Vent. rate has decreased BY 21 BPM Confirmed by HI NUNES, . SVesna (4) on 05/26/2017 8:22:42 PM Referred By: Confirmed By:DR. Eligio DO MD
[2017-05-26] MEDS: Simvastatin 20 MG TAB PO SCH (20:33)
[2017-05-26] MEDS: Acetaminophen 500 MG TAB PO PRN (20:33)
[2017-05-26] MEDS: Heparin 5,000 UNITS/ML VIAL SC SCH (20:34)
[2017-05-27] MEDS: Albuterol Sulfate 2.5 mg/3 ml Neb NEB SCH ×4 (00:04→19:42)
[2017-05-27] MEDS: Digoxin 0.5 MG/2 ML AMP SLOW IVP SCH ×2 (00:13→05:41)
[2017-05-27] MEDS ORDERED: Amiodarone In Dextrose 200 ML IVPB SCH (00:30)
[2017-05-27] MEDS: Propofol 1,000 MG/100 ML VIAL IV PRN ×2 (03:49→17:15)
[2017-05-27 04:04] LABS: #Eosinphils 0.2 thou/uL (0.0-0.7); #Neutrophils 8.4 thou/uL (1.40-6.50); %Eosinophils 1.9 % (0.0-10.0); %Lymphocytes 9.2 % (21.0-51.0); %Monocytes 9.1 % (0.0-10.0); %Neutrophils 79.9 % (42.0-75.0); Hemoglobin 7.9 g/dL (14.0-18.0); Mean Corpuscular HGB CONC 30.9 g/dL (32.0-36.0); Mean Corpuscular Hemoglobin 27.1 pg (27.0-31.0); Mean Corpuscular Volume 87.7 fl (80.0-94.0); Mean Platelet Volume 8.2 fL (7.4-10.4); Platelet Count 140 thou/uL (130-400); RBC Distribution Width 14.1 % (11.5-14.5); Red Blood Cell (RBC) Count 2.93 mill/uL (4.70-6.10); White Blood Cell (WBC) Count 10.6 thou/uL (4.8-10.8)
[2017-05-27 04:28] LABS: Anion Gap 17 mmol/L (10-20); BUN (Urea Nitrogen) 35 mg/dL (8.4-25.7); Calc. Creatinine Clearance 9 mL/min (70-130); Calcium 7.5 mg/dL (7.8-10.44); Carbon Dioxide 19 mmol/L (23-31); Chloride 105 mmol/L (98-107); Estimated GFR-MDRD 6; Glucose 101 mg/dL (80-115); Potassium 4.4 mmol/L (3.5-5.1); Sodium 137 mmol/L (136-145)
[2017-05-27] MEDS: Piperacillin/Tazobactam 2.25 GM in Sodium Chloride 0.9% 100 ML IVPB SCH ×3 (05:41→21:51)
--- NOTE | 2017-05-27 06:03 | PRG ---
DATE OF SERVICE: 05/26/2017 Terence Jorge is doing well today. He is on the ventilator. His atrial fibrillation has recently been controlled with digoxin and amiodarone. OG tube has been placed for meds. Left femoral tempor abad dialysis catheter did not work well for dialysis and Activase applied and they will try to get in the morning. The patient will need a cuffed tunnel dialysis catheter for discharge. He also needs a left arm dialysis access primary fistula versus graft. I consulted with Dr. Sundeep Alicea and we w ill plan attempt a dialysis using this temporary dialysis catheter in the morning and then after that remove that and plan placement of a cuffed tunneled dialysis catheter tomorrow afternoon and placeme nt of left arm dialysis graft. Risks and benefits discussed with the family and they agree, question s answered. The patient's amputation stump right above the knee is dry. Hemoglobin 8, white count 8 . Potassium 4.2, sodium 136.
[2017-05-27 06:57] LABS: Vancomycin, Random 27.1 ug/mL (See Comment)
[2017-05-27 07:23] LABS: Actual Bicarbonate (HCO3a) 23.1 mEq/L (22-26); CO2 Tension 35.5 mmHg (35.0-45.0); Hemoglobin (Hb) 7.1 g/dL (14.0-18.0); O2 Tension (PaO2) 98.7 mmHg (80.0-100.0); pH, Arterial 7.43 (7.35-7.45)
[2017-05-27 07:24] LABS: ALV-art Gradient 142.125 (0-20); Puncture Site LRA
[2017-05-27] MEDS: Calcium Carbonate 500 MG TAB PO SCH ×3 (08:03→17:10)
--- NOTE | 2017-05-27 08:19 | PRG ---
DATE OF SERVICE: 05/27/2017 SUBJECTIVE: The patient remains intubated. He appears to be in no acute distress. He is awake and alert. OBJECTIVE: VITAL SIGNS: Blood pressure 146/60, pulse 77, respirations 12, pulse ox 99. HEART: Irregularly irregular. LUNGS: With occasional rhonchi. ABDOMEN: Soft. EXTREMITIES: With no edema. Left dorsalis pedis 2+. LABORATORY DATA: White count 10.6, H and H 7.9 and 25.7, platelets 140. Sodium 137, potassium 4.4, creatinine 8.84, BUN 35. Blood sugar 94, 101. ASSESSMENT: 1. Respiratory failure, on a ventilator. Hopefully, we will wean soon. 2. Postoperative day #2, status post right [id number] amputation. 3. Severe atherosclerotic vascular disease/coronary artery disease. 4. Tobacco abuse. 5. Hypertension. 6. Diabetes. 7. Hyperlipidemia. 8. Full code 9. End-stage renal disease, on dialysis with pancytopenia. 10. Atrial fibrillation with rapid ventricular response, resolving. 11. Pacemaker. 12. Nonischemic cardiomyopathy. 13. History of mesenteric ischemia. PLAN: 1. Hopefully, we will wean from the vent soon. 2. In the process of receiving dialysis at this time. 3. Continue antibiotics. 4. Access continues to be a problem. Dr. Dailey and Dr. Alicea discussing next steps towards access. 5. Full code.
[2017-05-27] MEDS ORDERED: Epoetin (ESRD) 10,000 UNITS/ML VIAL SC SCH (09:00)
[2017-05-27] MEDS: Sevelamer Carbonate 800 MG TAB PO SCH ×3 (09:03→17:14)
--- NOTE | 2017-05-27 09:10 | PDOC.CTH ---
<Karime Esteban - Last Filed: 05/27/17 09:15> Cardiology Progress Note - Subjective The pt seen and examined. No overnight events. No cardiac complaints. Per RN , the pt's HR has been well controlled with Digoxin. The pt luiz undergo permanent HD access today. He is undergoing HD at this moment with Lt fem temporary HD access. Still on ventilator support with vent sedation. - Objective Vital Signs Temp Pulse Resp BP Pulse Ox 05/27/17 07:00 99.4 F 05/27/17 06:42 77 146/60 H 05/27/17 06:39 82 12 99 05/27/17 06:00 12 05/27/17 05:41 72 05/27/17 04:00 98.1 F 12 05/27/17 02:14 72 135/54 L 05/27/17 02:00 12 05/27/17 00:13 80 05/27/17 00:04 80 110/49 L 05/27/17 00:00 99.8 F H 12 05/26/17 22:10 89 134/60 05/26/17 22:00 101.1 F H 12 Admit Weight 184 lb Weight 184 lb 3.2 oz 05/26/17 05/27/17 05/28/17 06:59 06:59 06:59 Intake Total 2626 1074 Output Total 0 0 0 Balance 2626 1074 0 - Physical Examination Neck: no JVD present Lungs: other: (diminished at bases) Heart: other: (Irregular) Abdomen: soft Extremities: other: (2+ pulses to LLE; Rt AKA) - Telemetry Telemetry Rhythm: Afib HR 80-90s - Labs Result Diagrams: 05/27/17 03:32 05/27/17 03:32 Troponin/CKMB CK-MB (CK-2) 1.0 ng/mL (0-6.6) 05/25/17 09:12 Troponin I 0.041 ng/mL (< 0.028) H 05/25/17 09:12 - Assessment/Plan 1. Afib/AFlutter with RVR - HR has been well controlled with Amiodarone drip and Digoxin IV push; holding Anticoagulant due to s/p Rt AKA on 05/25/17 and possible permanent HD access on 05/27/17; cont. monitor on tele 2. Ischemia to Rt Leg with S/p Rt Deep Fem artery exploration and emblectomy and Rt AKA - stable; on Plavix; managed by surgeon; 3. Ischemic CMY - Echo on 05/2014 showed EF 50-55% with Lt artrial dilation and mild AR and MR; stable; cont. monitor 4. HTN - stable with Metoprolol; cont. monitor 5. ESRD with HD on MWF - managed by account executive 6. s/p PM placement on 05/2014 - cont. monitor on tele 7. Hyperlipidemia - on Statin 8. current smoker - per family, he still smokes 4-5 cigarettes/day; smoking cessation education given to the family 9. Anemia - on Epogen qwk MAR reviewed Review of Systems - Review of Systems Constitutional: reports: see HPI EENTM: reports: see HPI Respiratory: reports: see HPI Cardiac (ROS): reports: see HPI ABD/GI: reports: see HPI : reports: see HPI Musculoskeletal: reports: see HPI <Nelly Betancourt - Last Filed: 05/27/17 10:42> Cardiology Progress Note - Objective Vital Signs Temp Pulse Resp BP Pulse Ox 05/27/17 09:52 99.8 F H 05/27/17 09:27 100.3 F H 05/27/17 09:11 100.2 F H 05/27/17 09:00 100.5 F H 05/27/17 08:00 12 05/27/17 07:00 99.4 F 05/27/17 06:42 77 146/60 H 05/27/17 06:39 82 12 99 05/27/17 06:00 12 05/27/17 05:41 72 05/27/17 04:00 98.1 F 12 05/27/17 02:14 72 135/54 L 05/27/17 02:00 12 05/27/17 00:13 80 05/27/17 00:04 80 110/49 L 05/27/17 00:00 99.8 F H 12 Admit Weight 184 lb Weight 184 lb 3.2 oz 05/26/17 05/27/17 05/28/17 06:59 06:59 06:59 Intake Total 2626 1074 350 Output Total 0 0 0 Balance 2626 1074 350 - Labs Result Diagrams: 05/27/17 03:32 05/27/17 03:32 Troponin/CKMB CK-MB (CK-2) 1.0 ng/mL (0-6.6) 05/25/17 09:12 Troponin I 0.041 ng/mL (< 0.028) H 05/25/17 09:12 - Assessment/Plan Pt. seen and eval. by me. He remains in Afib. This is likely chronic. I will d/ c amiodarone. Continue dig and betablockers. decrease digoxin since pt. has renal failure. Chest clear, irreg.,irreg.. Left pedal pulse present.
[2017-05-27] MEDS: Clopidogrel Bisulfate 75 MG TAB PO SCH (09:27)
[2017-05-27] MEDS: Fish Oil 1,000 MG CAP PO SCH (09:27)
[2017-05-27] MEDS: Heparin 5,000 UNITS/ML VIAL SC SCH ×2 (09:30→20:15)
[2017-05-27] MEDS: Metoprolol Tartrate 50 MG TAB PO SCH ×2 (09:30→20:15)
--- NOTE | 2017-05-27 09:42 | PRG ---
DATE OF SERVICE: 05/27/2017 SUBJECTIVE: Mr. Jorge is a 71-year-old male with ESRD, currently on maintenance hemodial ysis. I am at the bedside supervising his dialysis. He had some difficulty with his femoral dialysi s catheter yesterday due to poor blood flow and increased pressure. Activase overnight was applied. This morning, the catheter is functioning well. The plan is for him to have cuffed hemodialysis cat heter placed by a surgeon and the planned AV fistula. So far, doing well. Please note this patient has had a right leg ischemia and underwent revascularization and subsequent right AKA. OBJECTIVE: VITAL SIGNS: Blood pressure is 146/60, heart rate 82, respiratory rate 12, pulse ox 99%. GENERAL: Patient is awake, intubated on ventilator support. He can follow commands. HEENT: Slightly pale conjunctivae, anicteric sclerae. NECK: No neck mass, no carotid bruits, no JVD. CHEST: No deformities. LUNGS: Clear breath sounds. HEART: Normal sinus rhythm. No murmur, no gallops, no rubs. ABDOMEN: Globular, soft, nontender, no masses. EXTREMITIES: No edema, no deformities, status post right AKA. MEDICATIONS: Of 05/27/2017 reviewed. LABORATORY DATA: Of 05/27/2017, white count 10.6, hemoglobin 7.9, hematocrit 25.7, sodium 137, potas sium 4.4, chloride 105, carbon dioxide 19, BUN 35, creatinine 8.84, calcium 7.5. ASSESSMENT AND PLAN: 1. Anemia - Epogen 10,000 units subcu every week. 2. End-stage renal disease, stable. Tolerating current hemodialysis regimen. Continue Friday, esd, Friday dialysis. The patient is receiving an extra dialysis today since the dialysis did not finish yesterday due to a poorly functioning dialysis catheter. Catheter is now much improved with p lacement of Activase. 4. Peripheral vascular disease, status post right above-knee amputation. Surgery is following. Overall, prognosis remains guarded.
[2017-05-27] MEDS ORDERED: Amiodarone HCl 450 MG, Admixture Fee 1 EACH in Dextrose 5% in Water 250 ML IVPB SCH ×3 (09:45)
[2017-05-27] MEDS ORDERED: Heparin 10,000 UNITS/ 10 ML VIAL ONE (12:39)
[2017-05-27] MEDS ORDERED: PHENYLEPHRINE-NS 100 MCG/ML 10 ML SYRINGE ONE (12:39)
[2017-05-27] MEDS ORDERED: Fentanyl 100 MCG/2 ML VIAL ONE (12:40)
[2017-05-27] MEDS ORDERED: Heparin 5,000 UNITS/ML VIAL ONE (12:45)
[2017-05-27] MEDS ORDERED: Heparin 10,000 UNITS/1 ML VIAL ONE (12:45)
[2017-05-27] MEDS ORDERED: Lidocaine 1% w/Epinephrine 1:200K 30 ML VIAL ONE (12:45)
[2017-05-27] MEDS ORDERED: Bupivacaine 0.25% HCL 30 ML VIAL ONE (12:45)
[2017-05-27] MEDS ORDERED: Protamine Sulfate 50 MG/5 ML VIAL ONE (12:45)
[2017-05-27] MEDS ORDERED: Midazolam HCl 2 mg/2 ml Vial ONE (12:49)
[2017-05-27] MEDS ORDERED: Sodium Chloride 0.9% 30 ML ONE (14:57)
--- NOTE | 2017-05-27 20:14 | OP ---
DATE OF OPERATION: 05/27/2017 PREOPERATIVE DIAGNOSIS: End-stage renal disease, thrombosed dialysis fistula right upper arm, status post HeRO procedure with prosthetic graft from the deltopectoral groove right cephalic vein across t he manubrium to the left internal jugular vein. SURGEON: Angel Dailey M.D. ANESTHESIA: General. Local 0.25% Marcaine, 30 mL, mixed with 1% Xylocaine with epinephrine, 30 mL o f local anesthetic. PROCEDURE: Left arm primary fistula, proximal radial artery of good quality outflow basilic vein onl y. There was a communication to the cephalic vein, which was very short and occluded in the distal u pper arm, retrograde antecubital vein preserved. Exploration of left wrist finding the veins be inad equate and closed, placement of left femoral vein cuffed tunnel dialysis catheter, and angiodynamics. SURGEON: Angel Dailey M.D. Fluoroscopy used. PROCEDURE IN DETAIL: The patient was taken to the operating room where under general anesthesia, lef t upper extremity, axilla and chest, shoulder and left lower extremity groin was prepared with chlora prep, draped in routine fashion. Local anesthetic infiltrated into skin and subcutaneous tissue abou t the operative sites. An incision made in the left wrist and the vein was inadequate. Subcutaneous tissues approximated with 3-0 Monocryl, skin with subdermal 4-0 Monocryl and DermaGlue applied. Inc ision made in the proximal volar forearm longitudinally, carried down through the skin and subcutaneo us tissue. Antecubital vein dissected free, was of good caliber. There was a small communicating br anch to the cephalic vein, but a much larger branch outflow basilic vein. Perforating branch to the antecubital vein dissected free and branches divided between clips, in 4-0 silk ties and it was spatu lated over a branch point and interrogated with coronary dilators, passing coronary dilators from a 2 mm to a 4 mm coronary dilator out the basilic vein outflow. A 2-mm coronary dilator would not pass out the cephalic vein outflow indicating occlusion. Patient was given 6000 units of heparin intraven ously. After adequate circulation time, the proximal radial artery was clamped proximally and distal ly. Artery was of good caliber without significant arteriosclerotic disease. Longitudinal arterioto my made sharply and elongated with Pham scissors and vein perforating branch of the antecubital vein spatulated over a branch point and end vein to side proximal radial artery anastomosis created with continuous suture of 6-0 Prolene. Vascular clamps released and there was good flow in the fistula ev ident by Doppler interrogation. The patient was given 25 mg of protamine intravenously by Anesthesia . Subcutaneous tissues approximated with 3-0 Monocryl, skin with subdermal 4-0 Monocryl and DermaGlu e applied. Attention was then turned to the left groin where trocar catheter cannulated the femoral vein. J-wir e threaded. Trocar catheter removed. Skin incised and enlarged sharply. Exit site stab incision ma de with an 11 blade and using the tunneling device, the angiodynamPalingen femoral vein length catheter tu nneled between the two incisions, placing the fabric cuff beneath the skin. Catheter secured with 2 interrupted sutures of 3-0 nylon and Dermabond applied. Smaller and medium sized dilators placed ove r the J-wire in the femoral vein and removed. Dilator and pull-away sheath placed over the J-wire in the femoral vein. Dilator and J-wire removed. Catheter placed with a pull-away sheath. The pull-a way sheath removed. Fluoroscopically, the catheter noted to be in good position in the inferior vena cava. Subcutaneous tissues approximated with 4-0 Monocryl, skin with subdermal 4-0 Monocryl and [place] maGlue applied. Each port aspirated blood and flushed with saline solution and then heparinized sali ne solution 1000 units heparin per mL indicated volume of the port. Patient tolerated the procedure well.
[2017-05-27] MEDS: Simvastatin 20 MG TAB PO SCH (20:15)
[2017-05-27] MEDS: Acetaminophen 500 MG TAB PO PRN (23:11)
[2017-05-27] MEDS: Sodium Chloride 0.9% 1,000 ML IV SCH (23:17)
--- NOTE | 2017-05-27 23:48 | PRG ---
DATE OF SERVICE: 05/27/2017 SUBJECTIVE: Mr. Jorge underwent vascular access today. He has been intermittently febrile. His last fever was at noon. He has been afebrile this afternoon. Microbiology has been negative x4 sets of blood cultures on the and . OBJECTIVE: LUNGS: Clear. HEART: Regular rhythm. ABDOMEN: Soft. LABORATORY DATA: White count 10.6, hemoglobin 7.9 and platelets 140,000. Sodium 137, potassium 4.4, chloride 105, bicarbonate 19, BUN 35 and creatinine 8.8. IMPRESSION: 1. Respiratory failure after [id number]-zzu-tcjg amputation. 2. Limited vascular access for dialysis. PLAN: Continue ventilation. Maybe he will be a candidate for weaning tomorrow as long as he is not febrile.
[2017-05-28] MEDS: Propofol 1,000 MG/100 ML VIAL IV PRN (00:15)
[2017-05-28] MEDS: Albuterol Sulfate 2.5 mg/3 ml Neb NEB SCH ×2 (00:16→06:57)
[2017-05-28] MEDS: Piperacillin/Tazobactam 2.25 GM in Sodium Chloride 0.9% 100 ML IVPB SCH ×3 (05:00→21:26)
[2017-05-28 06:09] LABS: Digoxin 6.05 ng/mL (0.8-2.0)
[2017-05-28 07:16] LABS: #Lymphocytes 0.6 thou/uL (1.20-3.40); #Monocytes 0.9 thou/uL (0.11-0.59); #Neutrophils 13.2 thou/uL (1.40-6.50); %Basophils 0.1 % (0.0-1.0); %Eosinophils 0.2 % (0.0-10.0); %Lymphocytes 4.1 % (21.0-51.0); %Monocytes 6.1 % (0.0-10.0); %Neutrophils 89.6 % (42.0-75.0); Hemoglobin 9.5 g/dL (14.0-18.0); Mean Corpuscular HGB CONC 30.7 g/dL (32.0-36.0); Mean Corpuscular Hemoglobin 27.2 pg (27.0-31.0); Mean Corpuscular Volume 88.5 fl (80.0-94.0); Mean Platelet Volume 8.6 fL (7.4-10.4); Platelet Count 172 thou/uL (130-400); RBC Distribution Width 14.5 % (11.5-14.5); Red Blood Cell (RBC) Count 3.51 mill/uL (4.70-6.10); White Blood Cell (WBC) Count 14.7 thou/uL (4.8-10.8)
[2017-05-28 07:28] LABS: Anion Gap 25 mmol/L (10-20); BUN (Urea Nitrogen) 23 mg/dL (8.4-25.7); Calc. Creatinine Clearance 11 mL/min (70-130); Calcium 7.8 mg/dL (7.8-10.44); Carbon Dioxide 16 mmol/L (23-31); Chloride 102 mmol/L (98-107); Estimated GFR-MDRD 7; Glucose 144 mg/dL (80-115); Potassium 4.6 mmol/L (3.5-5.1); Sodium 138 mmol/L (136-145)
[2017-05-28 07:43] LABS: Actual Bicarbonate (HCO3a) 18.6 mEq/L (22-26); Base Excess (BEa) -5.6 mEq/L (0 (+/-) 2.5); CO2 Tension 31.2 mmHg (35.0-45.0); Hemoglobin (Hb) 8.7 g/dL (14.0-18.0); O2 Tension (PaO2) 96.5 mmHg (80.0-100.0); pH, Arterial 7.39 (7.35-7.45)
[2017-05-28 07:44] LABS: Puncture Site RRA
--- NOTE | 2017-05-28 07:54 | PRG ---
DATE OF SERVICE: 05/28/2017 TIME: 07:11 SUBJECTIVE: The patient remains intubated. He is sedated at this time. OBJECTIVE: VITAL SIGNS: Temperature 98.8, blood pressure 106/49, respirations 12, pulse ox 99%. HEART: Irregularly irregular, rate controlled. LUNGS: Bilateral rhonchi. ABDOMEN: Soft. EXTREMITIES: With no edema of the left leg. Dorsalis pedis 2+. LABORATORY DATA: Digoxin level 6.05, hold digoxin today and patient will receive dialysis today, CBC and BMP pending. ASSESSMENT: 1. Respiratory failure, on ventilator. 2. Postoperative day #3 status post right above-knee amputation. 3. Severe atherosclerotic vascular disease/coronary artery disease. 4. Tobacco abuse. 5. Hypertension. 6. Diabetes. 7. Hyperlipidemia. 8. FULL CODE. 9. End-stage renal disease, on dialysis with pancytopenia. 10. Atrial fibrillation with rapid ventricular response, resolving. 11. Pacemaker. 12. Nonischemic cardiomyopathy. 13. History of mesenteric ischemia. PLAN: 1. Today possibly may be weaned from the ventilator. 2. Dialysis Friday, Friday, and Friday. 3. Prognosis guarded. 4. Continue antibiotics. 5. Check CBC and BMP today.
[2017-05-28 07:58] LABS: Vancomycin, Trough 20.4 ug/mL
--- NOTE | 2017-05-28 08:04 | PDOC.CTH ---
<Karime Esteban - Last Filed: 05/28/17 11:20> Cardiology Progress Note - Subjective the pt seen and examined. No overnight events. Generalized edema. Still on Mechanical ventilation support with Diprivan. Possible extubation today? - Objective Vital Signs Temp Pulse Resp BP Pulse Ox 05/28/17 07:44 89 05/28/17 07:00 98.5 F 05/28/17 06:58 89 106/49 L 05/28/17 06:57 83 12 99 05/28/17 06:00 12 05/28/17 04:00 15 05/28/17 03:00 98.8 F 05/28/17 02:18 92 05/28/17 02:00 13 05/28/17 00:16 96 18 100 05/28/17 00:00 12 05/27/17 23:00 100.1 F H 05/27/17 22:30 71 05/27/17 22:00 12 Admit Weight 184 lb Weight 175 lb 1 oz 05/27/17 05/28/17 05/29/17 06:59 06:59 06:59 Intake Total 1074 1349.6 Output Total 0 300 Balance 1074 1049.6 - Physical Examination Neck: no JVD present Lungs: other: (coases and diminished at bases) Heart: other: (irregular) Extremities: other: (2+ LLE; Rt AKA) - Telemetry Telemetry Rhythm: Afib 90-100s - Labs Result Diagrams: 05/28/17 Unknown 05/28/17 Unknown Troponin/CKMB CK-MB (CK-2) 1.0 ng/mL (0-6.6) 05/25/17 09:12 Troponin I 0.041 ng/mL (< 0.028) H 05/25/17 09:12 - Assessment/Plan 1. Afib/AFlutter with RVR - HR has been well controlled; Off Amiodarone drip now ; and d/c Digoxin due to digoxin toxicity, 6.05; on Heparin BID; cont. monitor on tele 2. Ischemia to Rt Leg with S/p Rt Deep Fem artery exploration and emblectomy and Rt AKA - stable; on Plavix; managed by surgeon; 3. Ischemic CMY - Echo on 05/2014 showed EF 50-55% with Lt artrial dilation and mild AR and MR; stable; cont. monitor 4. HTN - hypotensive; cont. monitor 5. ESRD with HD on MWF - managed by orchestra director 6. s/p PM placement on 05/2014 - cont. monitor on tele 7. Hyperlipidemia - on Statin 8. current smoker - per family, he still smokes 4-5 cigarettes/day; smoking cessation education given to the family 9. Anemia - on Epogen qwk MAR reviewed * Recheck Dig level tomorrow ( must be at least 4 hrs after last dose of Digoxin ) Review of Systems - Review of Systems Constitutional: reports: see HPI EENTM: reports: see HPI Respiratory: reports: see HPI Cardiac (ROS): reports: see HPI ABD/GI: reports: see HPI : reports: see HPI Musculoskeletal: reports: see HPI Skin: reports: see HPI <Nelly Betancourt - Last Filed: 05/29/17 10:08> Cardiology Progress Note - Objective Vital Signs Temp Pulse Resp Pulse Ox 05/29/17 07:25 98.5 F 99 14 98 05/29/17 07:05 98 05/29/17 07:03 99 14 98 05/29/17 07:00 99.3 F 05/29/17 06:36 98.1 F 05/29/17 04:00 98.7 F 05/29/17 03:52 98 05/29/17 02:49 94 25 H 97 05/29/17 02:00 98.9 F 05/29/17 00:00 97 05/28/17 23:00 98.8 F 05/28/17 22:26 87 25 H 98 Admit Weight 184 lb Weight 167 lb 1.766 oz 05/28/17 05/29/17 05/30/17 06:59 06:59 06:59 Intake Total 1349.6 950.8 Output Total 300 0 Balance 1049.6 950.8 0 - Labs Result Diagrams: 05/28/17 Unknown 05/28/17 Unknown Troponin/CKMB CK-MB (CK-2) 1.0 ng/mL (0-6.6) 05/25/17 09:12 Troponin I 0.041 ng/mL (< 0.028) H 05/25/17 09:12 - Assessment/Plan Pt. seen and eval. by me. i agree with the A/P by the DEPUTY ATTORNEY GENERAL. He is extubated and alert. Wants to eat. Chest is clear anteriorly. Pt. in afib. at this time.
[2017-05-28] MEDS: Sevelamer Carbonate 800 MG TAB PO SCH ×3 (08:50→19:46)
[2017-05-28] MEDS: Calcium Carbonate 500 MG TAB PO SCH ×3 (08:50→19:46)
[2017-05-28] MEDS ORDERED: Digoxin 0.125 MG TAB PO SCH (09:00)
--- NOTE | 2017-05-28 09:07 | PRG ---
DATE OF SERVICE: 05/28/2017 SUBJECTIVE: Mr. Jorge is a 71-year-old male with ESRD and currently undergoing dialysis. I am at the bedside supervising his dialysis. He underwent placement of a cuffed hemodialysis cath eter yesterday. In addition, an AV fistula was placed. Please note this patient was admitted for pa ld shortness of breath. He developed right leg ischemia and underwent a right [id number]-[id number] amputat ion. PHYSICAL EXAMINATION: VITAL SIGNS: Blood pressure 104/46, heart rate 89, respiratory rate 20, pulse ox 99%. GENERAL: Arousable, not in overt distress, intubated. HEENT: Slightly pale conjunctivae, anicteric sclerae. NECK: No neck mass, no carotid bruits, no JVD. CHEST: No deformities. LUNGS: Decreased breath sounds. HEART: Normal sinus rhythm. No murmur, no gallops, no rubs. ABDOMEN: Globular, soft, nontender, no masses. EXTREMITIES: Status post right AKA. MEDICATIONS: 05/08/2017 - Reviewed. LABORATORIES: 05/28/2017 - White count 14.7, hemoglobin 9.5. Sodium 138, potassium 4.6, chloride 10 2, carbon dioxide 16, BUN 23, creatinine 7.3, glucose 144, calcium 7.8. ASSESSMENT AND PLAN: 1. End-stage renal disease, stable. Tolerating current hemodialysis regimen. Due to the slightly l ower blood pressure, we are minimizing fluid removal. Attempting less than 1 liter fluid removal. 2. Peripheral vascular disease/right leg ischemia - the patient is status post right kpsgj-khc-yevk amputation. 3. Anemia, continuing weekly Epogen. Overall, prognosis for this patient remains guarded.
[2017-05-28] MEDS: Heparin 5,000 UNITS/ML VIAL SC SCH ×2 (09:16→20:29)
[2017-05-28] MEDS: Clopidogrel Bisulfate 75 MG TAB PO SCH (09:16)
[2017-05-28] MEDS: Fish Oil 1,000 MG CAP PO SCH (09:17)
[2017-05-28] MEDS: Metoprolol Tartrate 50 MG TAB PO SCH ×2 (10:20→20:29)
--- NOTE | 2017-05-28 11:32 | PRG ---
DATE OF SERVICE: 05/28/2017 Terence Jorge is doing well today. He is still on the ventilator. LABORATORY: Hemoglobin 9, white count 14, sodium 138, potassium 4.6. PHYSICAL EXAMINATION: LUNGS: Clear to auscultation. A few rhonchi at the base. CARDIAC: Regular rate and rhythm. ABDOMEN: Soft. EXTREMITIES: Right AKA dressings clean and dry. Left arm primary fistula, good thrill and bruit. L eft femoral vein dialysis catheter worked well with dialysis, although the ports were switched. ASSESSMENT AND PLAN: 1. Respiratory failure, weaning per Pulmonary. 2. Peripheral vascular disease with acute ischemia, right lower extremity requiring right above-the- knee amputation, stump looks healthy. I have asked [facility] to place a stump computer systems architect . The patient would benefit from rehab once evaluated from PT, OT once extubated. 3. 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 Left subclavian vein pacemaker, Her o procedure graft extending from deltopectoral right cephalic vein across his manubrium and lower nec k to the left internal jugular vein and into the SVC. Previous venogram revealing the left subclavian vein to be patent, although with a mild stenosis. 4. The patient will need a staged dialysis access procedure in 6-8 weeks, basilic vein transposition fistula, left arm. The patient has had complaints of airway compromise requiring him to sit up and not being able to lay flat with the patient, suspecting this is due to the hero graft placed in [place] (patient referred by the dialysis center to [place] for this procedure, thus increasing the risk of left subclavian vein stenosis and outflow problems and increased risk of left arm edema). I have bryn ked to the patient and the patient's daughter regarding future removal of a portion of the graft in t he neck area to resolve his perception of airway compromise when supine. 4. History of cardiomyopathy, improving with medical therapy, ischemic cardiomyopathy, non-revascula rable coronary disease due to small distal target vessels, improved ejection fraction from 20% to 50 -55%. 5. Deconditioning. The patient would benefit from a rehab stay and waiting for PT, OT evaluation af ter extubation.
[2017-05-28 14:40] VITALS: BP 147/56
--- NOTE | 2017-05-28 18:02 | PRG ---
DATE OF SERVICE: 05/28/2017 Mr. Jorge did well overnight. He was dialyzed this morning. He has been on CPAP most of the day and looks comfortable OBJECTIVE: VITAL SIGNS: His heart rate is 98, blood pressure 147/56, respiratory rate is 15, oximetry is 98. L UNGS: Essentially clear. HEART: Regular rhythm. ABDOMEN: Soft. LABORATORY DATA: White count 14.7, hemoglobin 9.5, platelets 172. Sodium 138, potassium 4.6, chloride 102, bicarb 16, BUN 23, creatinine 7.3. PH 7.39, CO2 of 31, pO2 f 96. IMPRESSION: 1. Respiratory failure after an amputation. 2. Acid base disorder that he would be improving daily with daily dialysis. 3. Terrible vascular disease that is chronic. 4. Obesity. I feel he is a candidate for extubation. This has been done this afternoon. Apparently, the family has decided that he will not be reintubated and be a DO NOT RESUSCITATE patient. Critical care time was 30 minutes.
[2017-05-28] MEDS: Simvastatin 20 MG TAB PO SCH (20:29)
[2017-05-28] MEDS ORDERED: Acetaminophen 500 MG TAB PO PRN (21:39)
[2017-05-28] MEDS: traMADol HCl 50 MG TAB PO PRN (22:15)
[2017-05-29 04:08] VITALS: BMI 26.9
[2017-05-29 04:38] LABS: Digoxin 4.05 ng/mL (0.8-2.0)
[2017-05-29] MEDS: Piperacillin/Tazobactam 2.25 GM in Sodium Chloride 0.9% 100 ML IVPB SCH (05:15)
[2017-05-29] MEDS: traMADol HCl 50 MG TAB PO PRN (06:19)
[2017-05-29] MEDS: Fish Oil 1,000 MG CAP PO SCH (08:24)
[2017-05-29] MEDS: Heparin 5,000 UNITS/ML VIAL SC SCH (08:24)
[2017-05-29] MEDS: Calcium Carbonate 500 MG TAB PO SCH ×3 (08:24→18:11)
[2017-05-29] MEDS: Sevelamer Carbonate 800 MG TAB PO SCH ×3 (08:24→18:11)
[2017-05-29] MEDS: Clopidogrel Bisulfate 75 MG TAB PO SCH (08:25)
[2017-05-29] MEDS: Metoprolol Tartrate 50 MG TAB PO SCH (08:25)
--- NOTE | 2017-05-29 08:56 | PRG ---
DATE OF SERVICE: 05/29/2017 SUBJECTIVE: The patient is awake and alert. He was extubated yesterday. The is present and luis armando giraldo daughter Kelsey. We have been discussing future plans. OBJECTIVE: VITAL SIGNS: Temperature 98.5, pulse 99, respirations 14, pulse ox 98 on 2 liters O2, blood pressure 157/65. HEART: Irregular. LUNGS: Clear. ABDOMEN: Soft. EXTREMITIES: No palpable pulse in left lower extremity. The patient is somewhat edematous all over. LABORATORY DATA: Pending. ASSESSMENT: 1. Respiratory failure, weaned from ventilator. 2. Postop day #4 status post right buuhm-nzx-snap amputation. 3. Severe atherosclerotic vascular disease/coronary artery disease. 4. Tobacco abuse. 5. Hypertension. 6. Diabetes. 7. Hyperlipidemia. 8. Do not resuscitate. 9. End-stage renal disease on dialysis with pancytopenia. 10. Atrial fibrillation with rapid ventricular response, resolving. 11. Pacemaker. 12. Nonischemic cardiomyopathy. 13. History mesenteric ischemia. 14. Left leg ischemia with no palpable pulse with increasing pain. PLAN: I had a long discussion with Kelsey, the daughter. The patient no longer desires for dialysi s or further intervention. Inpatient hospice has been offered; however, the family wants to take him home under hospice care. He wants to go to his house. They are well aware that the patient needs n umerous other treatments to include possible evaluation of the left lower extremity vascular flow. George giraldo also needs further dialysis access evaluation. He also needs repair of his previous HeRO graft acr oss the sternum and he also needs to continue with dialysis. The patient no longer desires this. He wants to go home. He is adamant about this. Kelsey will talk further with the patient and his wif enzo and make a decision. The patient also complaining of increasing left leg pain. We will continue t o stay in contact with Kelsey and make the appropriate referral. It looks like they are desiring [facility] hospice.
[2017-05-29] MEDS ORDERED: HYDROcodone/Acetaminophen 10/325 mg Tablet PO PRN (09:33)
[2017-05-29] MEDS ORDERED: fentaNYL 100 mcg/hour Patch TD SCH (09:45)
--- NOTE | 2017-05-29 10:01 | PRG ---
DATE OF SERVICE: 05/29/2017 HISTORY OF PRESENT ILLNESS: Mr. Jorge is in ICU. Yesterday, his left leg became pulseless. He h as a palpable left femoral pulse and nonpalpable distal pulses. He was extubated yesterday morning. Patient, however, expressed that he did not want further dialysis. He wanted hospice care. He did not want any further interventions. This was honored and Dr. William was not consulted. Today, he has a pulseless left lower extremity and pain in his left foot and leg and is unable to move his leg bel ow his knee. His left foot is cold. He has a palpable left femoral pulse, nonpalpable popliteal or pedal pulses. Yesterday morning, he had palpable left femoral, popliteal, pedal pulses throughout. The patient does not want further dialysis. He wants hospice care. Left upper extremity primary AV fistula was patent with a good thrill and bruit. Lungs clear to auscultation. Abdomen is soft. Thi s morning, I have discussed these issues with the patient's daughter. The patient wants home hospice . The patient's is a little apprehensive, has fear of developing foul smelling lower extremity, and questions whether going home is a good idea. The patient's is present in the hospital. We will have hospice and the case maker talk to her as soon as possible to make definitive decisions about going home today with hospice or inpatient hospice per the family's wishes. To control his chapis n, we will place a fentanyl patch. I would hold on discharge from the unit, as the patient could be transferred directly to home hospice today or to inpatient hospice per family desires. Daughter has also asked me to generate a letter to help with the patient's sister, who is [place] and not a [place] resi dent, to enable her to come to the [facility] to visit Mr. Jorge. We will generate that letter now. Continue hospice care and no further surgical intervention.
[2017-05-29] MEDS: HYDROcodone/Acetaminophen 10/325 mg Tablet PO PRN ×2 (10:02→16:32)
--- NOTE | 2017-05-29 11:35 | PQF ---
CLINICAL DOCUMENTATION IMPROVEMENT CLARIFICATION FORM: ICD-10 Updated PLEASE DO AN ADDENDUM TO THE PROGRESS NOTE WITH ANY DOCUMENTATION UPDATES OR ADDITIONS AND CARRY THROUGH TO DC SUMMARY. THANK YOU. DATE: 05/29 ATTN: DR. FREDA PARRA Please exercise your independent, professional judgment in responding to the clarification form. Clinical indicators are provided on the bottom of this form for your review Please check appropriate box(s) to clarify if the following diagnosis has been ruled in our ruled out: SEPSIS, UNKNOWN SOURCE [ ] Ruled in diagnosis [ ] Continue to treat [ ] Resolved [ ] Ruled out diagnosis [ ] Other diagnosis [ ] Unable to determine For continuity of documentation, please document condition throughout progress notes and discharge summary. Thank You. CLINICAL INDICATORS - SIGNS / SYMPTOMS / LABS ER PHYSICIAN DOCUMENTATION 05/24: TRANSFER FROM [facility] FOR SEPSIS, UNKNOWN SOURCE. REVIEW OF PRIOR TRX RECORD, TACHY UPON ARRIVAL 120'S, WITH TEMPERATURE 102.1, LACTIC ACID 3 FINAL DIAGNOSIS: SEPSIS ATTENDING PHYSICIAN H&P DOCUMENTATION 05/24: HX OF PRESENT ILLNESS: ...CAME INTO THE [facility] ER LATE LAST NIGHT FOR FEVER OF 102 & SOME UPPER GASTRIC ABDOMINAL PAIN. LAB FINDINGS: BANDS AT 11%, WHICH IS THE UPPER EDGE OF NORMAL ASSESSMENT & PLAN: FEVER, ABDOMINAL PAIN, EARLY POSSIBLE LEFT SHIFT, SOME MEET CRITERIA FOR SEPSIS, UNSURE OF THE SOURCE. HE WAS STARTED ON VANCOMYCIN & ZOSYN , WE WILL CONTINUE THOSE FOR NOW. NO FURTHER MENTION OF SEPSIS TO DATE RISK FACTORS: ISCHEMIC R LEG TOBACCO ABUSE SEVERE PVD ESRD TREATMENTS: IV ANTIBIOTICS (VANCOMYCIN & ZOSYN 05/24 - PRESENT) IVF (NS 05/24 - ) R AKA (05/25) THANK YOU! Meredith (This form is maintained as a part of the permanent medical record) 2014 [employer]. All Rights Reserved Meredith Tran RN, [email or web address] Office: [phone] [facility]
--- NOTE | 2017-05-29 11:43 | PDOC.CTH ---
<Karime Esteban - Last Filed: 05/29/17 11:40> Cardiology Progress Note - Subjective The pt seen and examined. No overnight events. No cardiac complaints. The pt has refused HD or further treatment in hospital and requests Home Hospice. Possible d/c home with hospice today or tomorrow - Objective Vital Signs Temp Pulse Resp Pulse Ox 05/29/17 11:13 90 22 H 92 L 05/29/17 07:25 98.5 F 99 14 98 05/29/17 07:05 98 05/29/17 07:03 99 14 98 05/29/17 07:00 99.3 F 05/29/17 06:36 98.1 F 05/29/17 04:00 98.7 F 05/29/17 03:52 98 05/29/17 02:49 94 25 H 97 05/29/17 02:00 98.9 F 05/29/17 00:00 97 Admit Weight 184 lb Weight 167 lb 1.766 oz 05/28/17 05/29/17 05/30/17 06:59 06:59 06:59 Intake Total 1349.6 950.8 300 Output Total 300 0 Balance 1049.6 950.8 300 - Physical Examination General/Neuro: alert & oriented x3 Neck: no JVD present Lungs: other: (diminished at bases) Heart: other: (irregular) Abdomen: soft Extremities: other: (No pulses and cold to palpitate to LLE; Rt AKA) - Telemetry Telemetry Rhythm: AFib with RH 90s - Labs Result Diagrams: 05/28/17 Unknown 05/28/17 Unknown Troponin/CKMB CK-MB (CK-2) 1.0 ng/mL (0-6.6) 05/25/17 09:12 Troponin I 0.041 ng/mL (< 0.028) H 05/25/17 09:12 - Assessment/Plan 1. Afib/AFlutter with RVR - HR has been well controlled; Off Amiodarone drip and Digoxin due to digoxin toxicity; off heparin due to supportive care now; cont. monitor on tele 2. Ischemia to Rt Leg with S/p Rt Deep Fem artery exploration and emblectomy and Rt AKA - stable to the site; but no pulses to LLE now; on Plavix; Per Dr Dailey's note, the pt refused further treatment and requesting hospice care at home; managed by surgeon; 3. Ischemic CMY - Echo on 05/2014 showed EF 50-55% with Lt artrial dilation and mild AR and MR; stable; cont. monitor 4. HTN - hypertensive; cont. monitor 5. ESRD with HD on MWF - managed by paper finisher; however, the pt has been refusing HD 6. s/p PM placement on 05/2014 - cont. monitor on tele 7. Hyperlipidemia - on Statin 8. current smoker - per family, he still smokes 4-5 cigarettes/day; smoking cessation education given to the family 9. Anemia - on Epogen qwk MAR reviewed Review of Systems - Review of Systems Constitutional: reports: no symptoms reported EENTM: reports: no symptoms reported Respiratory: reports: no symptoms reported Cardiac (ROS): reports: no symptoms reported ABD/GI: reports: no symptoms reported : reports: no symptoms reported Musculoskeletal: reports: no symptoms reported <Nelly Betancourt - Last Filed: 05/29/17 23:03> Cardiology Progress Note - Objective Vital Signs Temp Pulse Resp Pulse Ox 05/29/17 18:16 93 16 05/29/17 15:13 99 18 05/29/17 15:00 98.3 F 05/29/17 11:13 90 22 H 92 L Admit Weight 184 lb Weight 167 lb 1.766 oz 05/28/17 05/29/17 05/30/17 06:59 06:59 06:59 Intake Total 1349.6 950.8 1215 Output Total 300 0 Balance 1049.6 950.8 1215 - Labs Result Diagrams: 05/28/17 Unknown 05/28/17 Unknown Troponin/CKMB CK-MB (CK-2) 1.0 ng/mL (0-6.6) 05/25/17 09:12 Troponin I 0.041 ng/mL (< 0.028) H 05/25/17 09:12 - Assessment/Plan pt. seen and eval. by me.I agree with the A/P by the ASSISTED LIVING HOME DIRECTOR. The pt. and family wish for the pt. to be on hospice. I will sign off.
[2017-05-29 16:19] VITALS: TEMP 98.3
--- NOTE | 2017-05-29 19:37 | PRG ---
DATE OF SERVICE: 05/29/2017 SUBJECTIVE: Mr. Jorge and his family apparently decided to withdraw dialysis and look at hospice. Those arrangements are being made. PHYSICAL EXAMINATION: VITAL SIGNS: He is stable post-extubation. His blood pressure is 142/60, heart rate is 87 this even ing, respiratory rate 16. He has been stable throughout the day. LUNGS: Clear. CARDIOVASCULAR: Regular rhythm. ABDOMEN: Soft. IMPRESSION: 1. End-stage renal disease, withdrawing dialysis. 2. Severe arterial vascular disease with very limited vascular access. 3. DO NOT RESUSCITATE status, requesting hospice. We will sign off.
--- NOTE | 2017-05-30 08:01 | PRG ---
TO WHOM IT MAY CONCERN: Mr. Terence Jorge has end-stage renal disease, recently underwent amputation above the knee right and has a left leg with poor circulation. Due to the patient's multiple organ failure, cardiac , renal on hemodialysis and his failing health the patient has elected nonsurgical hospice care. The patient does not want to continue dialysis. He desires hospice care and has terminal illness with l ezequiel expectancy of 2-7 days. The patient request his family members, [place] citizens from [place] to be able to visit him. Would request immigration to [place] travel allowances to accommodate the patien t's terminal illness. Sincerely, Richard. Asim M.D. [facility]. Cell phone - [phone]
== END 2017-05-29 19:25 | disposition hospice, home (50) | DRG 239 ==
LOC: ERS 03:30 → EDBD 07:44 → 2NO 07:44 → CCU 05-25 09:08
PROVIDERS: ADMIT Family Medicine; ATTEND Family Medicine
PROC: 0Y6C0Z1 Detachment at Right Upper Leg, High, Open Approach (ICD-10-PCS; principal; 2017-05-25)
PROC: 02HV33Z Insertion of Infusion Device into Superior Vena Cava, Percutaneous Approach (ICD-10-PCS; 2017-05-25)
PROC: 5A1945Z Respiratory Ventilation, 24-96 Consecutive Hours (ICD-10-PCS; 2017-05-25)
PROC: 06PYX3Z Removal of Infusion Device from Lower Vein, External Approach (ICD-10-PCS; 2017-05-25)
PROC: 04CK0Z6 (ICD-10-PCS; 2017-05-25)
PROC: 047M3ZZ Dilation of Right Popliteal Artery, Percutaneous Approach (ICD-10-PCS; 2017-05-25)
PROC: B41D1ZZ Fluoroscopy of Aorta and Bilateral Lower Extremity Arteries using Low Osmolar Contrast (ICD-10-PCS; 2017-05-25)
PROC: 3E05317 Introduction of Other Thrombolytic into Peripheral Artery, Percutaneous Approach (ICD-10-PCS; 2017-05-25)
PROC: 5A1D70Z Performance of Urinary Filtration, Intermittent, Less than 6 Hours Per Day (ICD-10-PCS; 2017-05-26)
PROC: 5A1D70Z Performance of Urinary Filtration, Intermittent, Less than 6 Hours Per Day (ICD-10-PCS; 2017-05-27)
PROC: 031C0ZF Bypass Left Radial Artery to Lower Arm Vein, Open Approach (ICD-10-PCS; 2017-05-27)
PROC: 06H033Z Insertion of Infusion Device into Inferior Vena Cava, Percutaneous Approach (ICD-10-PCS; 2017-05-27)
PROC: 5A1D70Z Performance of Urinary Filtration, Intermittent, Less than 6 Hours Per Day (ICD-10-PCS; 2017-05-28)
DX: I70.201 Unspecified atherosclerosis of native arteries of extremities, right leg (principal); N18.6 End stage renal disease; J96.90 Respiratory failure, unspecified, unspecified whether with hypoxia or hypercapnia; D61.818 Other pancytopenia; I74.3 Embolism and thrombosis of arteries of the lower extremities; E11.22 Type 2 diabetes mellitus with diabetic chronic kidney disease; I12.0 Hypertensive chronic kidney disease with stage 5 chronic kidney disease or end stage renal disease; I82.B12 Acute embolism and thrombosis of left subclavian vein; I48.2 Chronic atrial fibrillation; I48.92 Unspecified atrial flutter; T82.868A Thrombosis due to vascular prosthetic devices, implants and grafts, initial encounter; I25.5 Ischemic cardiomyopathy; Z66 Do not resuscitate; Z51.5 Encounter for palliative care; Y83.2 Surgical operation with anastomosis, bypass or graft as the cause of abnormal reaction of the patient, or of later complication, without mention of misadventure at the time of the procedure; Z99.2 Dependence on renal dialysis; Z95.0 Presence of cardiac pacemaker; Z79.02 Long term (current) use of antithrombotics/antiplatelets; F17.210 Nicotine dependence, cigarettes, uncomplicated; D63.1 Anemia in chronic kidney disease; E78.5 Hyperlipidemia, unspecified; E66.9 Obesity, unspecified; I08.0 Rheumatic disorders of both mitral and aortic valves; Z68.30 Body mass index [BMI] 30.0-30.9, adult
CPT/HCPCS: 36415; 36416; 36430; 37185; 37224; 37225; 71045; 76000; 76700; 76942; 80048; 80162; 80202; 82553; 82805; 83605; 83735; 84100; 84484; 85025; 85347; 86850; 86900; 86901; 87040; 90935; 93005; 93010; 93923; 94002; 94003; 94640; 96360; A4216; C1725; C1752; C1757; C1769; C1887; G0257; J0282; J0360; J1160; J1642; J1644; J2060; J2250; J2270; J2405; J2543; J2704; J2720; J2997; J3010; J3370; J7050; J7070; J7611; J7620; P9016; Q4081; S0020